=== PATIENT | male | born 1960 | race Caucasian/White ===

== ENCOUNTER → 2021-09-13 17:09 | Outpatient (CLI) | payer BC, SELFPAY | PROVIDERS: Visit Provider Physician Assistant | DX: U07.1 COVID-19 (principal) | CPT/HCPCS: 87635; U0005; U0003 ==

== ENCOUNTER → 2023-09-10 | Outpatient (CLI) | payer BC, SELFPAY | END | disposition home or self-care (01) | PROVIDERS: Visit Provider Family Medicine | DX: G47.10 Hypersomnia, unspecified (principal) | CPT/HCPCS: 95810 ==

== ENCOUNTER → 2025-03-26 | Outpatient (CLI) | payer BC, SELFPAY ==
--- OUTSIDE RECORDS SUMMARY | 2025-03-26 21:23 | XMS RPT_ITS | CCD ---
Author Organization [facility] Care Team Providers Care Radiology Technician Name Role Phone Mena Hairston Attending Unavailable Mena Hairston MD Unavailable [phone] Abraham Guillaume, Respiratory Therapy Unavailable Moreno AGUSTIN, Dr. Dudley Ramirez Unavailable Edison TRACTOR DRILL OPERATOR, Maureen Unavailable [place] TRACTOR DRILL OPERATOR, Rianna C Unavailable Unavailable Gogoi (scribe), Hemanta Unavailable Unavaila ble Brendan AGUSTIN, Michael Galvan Unavailable Phoebe Griffin Unavailable Unavailable Jose TRACTOR DRILL OPERATOR, Clau Unavailable Unavailable Latanya BELTRAN, Mimi Galvan Unavailable Unavaila ble Jovany (Scribe), Ronak Unavailable Unavailab le Richert TRACTOR DRILL OPERATOR, Fatoumata L Unavailable Unavailab le Satya TRACTOR DRILL OPERATOR, Mi Hidalgo Unavailable Unavailab le Malini TRACTOR DRILL OPERATOR, Elizabeth Crawford Unavailable Unavailab le Vess TRACTOR DRILL OPERATOR, Neilee L Unavailable Unavailable Marimar TRACTOR DRILL OPERATOR, Latrice N Unavailable Unavaila ble Unavailable Unavailable Johnny SMART, Tiffany Lockett Unavailable [phone] Breanna Mcpherson MA Unavailable Unavailable COLETTE Attending Unavailable Morgan AGUSTIN, Dr. Gage ([place] [facility]) A Unavail able MENA HAIRSTON Admitting Unavailable MENA HAIRSTON Primary Care Unavailable MENA HAIRSTON Consulting Unavailable MENA HAIRSTON Attending Unavailable PROVIDER, UNKNOWN Consulting Unavailable PROVIDER, UNKNOWN Consulting Unavailable PROVIDER, UNKNOWN Consulting Unavailable CECELIA SONG MD Admitting Unavailable CECELIA SONG MD Primary Care Unavailable CECELIA SONG MD Attending Unavailable MENA HAIRSTON Consulting Unavailable PROVIDER, UNKNOWN Consulting Unavailable PROVIDER, UNKNOWN Consulting Unavailable PROVIDER, UNKNOWN Consulting Unavailable CECELIA SONG MD Primary Care Unavailable CECELIA SONG MD Attending Unavailable MENA HAIRSTON Unavailable CECELIA SONG MD Admitting Unavailable PROVIDER, UNKNOWN Consulting Unavailable PROVIDER, UNKNOWN Consulting Unavailable PROVIDER, UNKNOWN Consulting Unavailable Medications Current Medications Medication Drug Class(es) Dates Sig (Normalized) Sig (Original) amoxicillin 500 mg oral capsule (20 sources) Penicillin-class Antibacterial Start: 09-19-2021 take 1000 mg by mouth every eight hours Amoxicillin Active 1000 MG PO Q8H September 19, 2021 12:00am Start: 11-08-2011 End: 11-18-2011 take 1 capsule by mouth three times daily AMOXICILLIN, 500MG (Oral Capsule) ; 1 (one) Capsule three times daily for 10 days Quantity: 30 {Capsule} Refills: 0 Ordered: 08-Nov-2011 STARLA Miles Start: 08-Nov-2011 End: 18-Nov-2011 Status: Inactive clonazePAM 1 mg oral tablet (20 sources) Benzodiazepine Start: 12-31-2024 clonazePAM 1 m g tablet ; 1 (one) Tablet qhs, prn insomnia for 0 days Quantity: 30 {Tablet} Refills: 3 Ordered: 31-Dec-2024 MD Mena Hairston Start: 31-Dec-2024 Comments: OARRS 12/31/24 Start: 09-03-2024 clonazePAM 1 m g tablet ; 1 (one) Tablet qhs, prn insomnia for 0 days Quantity: 30 {Tablet} Refills: 3 Ordered: 03-Sep-2024 MD Mena Hairston Start: 03-Sep-2024 Comments: OARRS 09/03/24 Start: 05-01-2024 clonazePAM 1 m g tablet ; 1 (one) Tablet qhs, prn insomnia for 0 days Quantity: 30 {Tablet} Refills: 3 Ordered: 01-May-2024 Start: 01-May-2024 Comments: OARRS 05/01/24 Start: 08-22-2023 clonazePAM 1 m g tablet ; 1 (one) Tablet qhs, prn insomnia for 0 days Quantity: 30 {Tablet} Refills: 3 Ordered: 31-Dec-2023 MD Mena Hairston Start: 31-Dec-2023 Comments: OARRS 12/31/23 Comment on above: OARRS 08/22/2023 OARRS 12/31/23 OARRS 05/01/24 OARRS 09/03/24 OARRS 12/31/24 escitalopram 10 mg oral tablet (20 sources) Serotonin Reuptake Inhibitor Start: 01-14-2025 escitalopram 10 mg tablet ; 1 (one) Tablet daily for 0 days Quantity: 90 {Tablet} Refills: 3 Ordered: 14-Jan-2025 MD Mena Hairston Start: 14-Jan-2025 Start: 01-13-2025 escitalopram 1 0 mg tablet ; 1 (one) Tablet daily for 0 days Quantity: 90 {Tablet} Refills: 0 Ordered: 13-Jan-2025 MD Mena Hairston Start: 13-Jan-2025 Start: 10-22-2024 escitalopram 1 0 mg tablet ; 1 (one) Tablet daily for 0 days Quantity: 90 {Tablet} Refills: 0 Ordered: 22-Oct-2024 MD Mena Hairston Start: 22-Oct-2024 Start: 07-25-2024 escitalopram 1 0 mg tablet ; 1 (one) Tablet daily for 0 days Quantity: 90 {Tablet} Refills: 0 Ordered: 25-Jul-2024 MD Mnea Hairston Start: 25-Jul-2024 Start: 02-05-2024 escitalopram 1 0 mg tablet ; 1 (one) Tablet daily for 0 days Quantity: 90 {Tablet} Refills: 1 Ordered: 05-Feb-2024 MD Mena Hairston Start: 05-Feb-2024 Start: 08-22-2023 escitalopram 1 0 mg tablet ; 1 (one) Tablet daily for 0 days Quantity: 90 {Tablet} Refills: 1 Ordered: 22-Aug-2023 STARLA Hogan Start: 22-Aug-2023 Completed/Discontinued Medications Medication Drug Class(es) Dates Sig (Normalized) Sig (Original) acetaminophen 325 mg / oxyCODONE hydrochloride 5 mg oral tablet (20 sources) Opioid Agonist take 1 tablet by mouth every four hours as needed PERCOCET, 5-325MG (Oral Tablet) ; 1-2 every four hours, as needed (5-325 MG) Status: Inactive Comments: Medication taken as needed. Comment on above: Medication taken as needed. citalopram 20 mg oral tablet (20 sources) Serotonin Reuptake Inhibitor Start: 07-08-2018 End: 07-08-2018 take 1 tablet by mouth once daily CeleXA 20 MG Oral Tablet ; 1 Tablet daily for 0 days Quantity: 90 {Tablet} Refills: 3 Ordered: 08-Jul-2018 MD Michael Cardona Start: 08-Jul-2018 End: 08-Jul-2018 Status: Discontinued Famotidine (20 sources) Histamine-2 Receptor Antagonist Acid Service Supervisor ; daily Status: Inactive MULTIVITAMINS (Oral Tablet) (20 sources) Start: 09-28-2010 End: 06-04-2023 take 1 tablet by mouth once daily MULTIVITAMINS (Oral Tablet) ; 1 Tablet daily for 0 days Quantity: 1 {Tablet} Refills: 0 Ordered: 04-Jun-2023 STARLA Hogan Start: 28-Sep-2010 End: 04-Jun-2023 Status: Discontinued Comments: Discontinued by Medication vendor. Comment on above: Discontinued by [facility] vendor. omeprazole 20 mg delayed release oral tablet (20 sources) Proton Pump Inhibitor take 1 tablet by mouth once daily OMEPRAZOLE, 20MG (Oral Tablet Delayed Release) ; 1 daily (20 MG) Status: Inactive ondansetron 8 mg oral tablet (20 sources) Serotonin-3 Receptor Antagonist take 1 tablet by mouth every eight hours ZOFRAN, 8MG (Oral Tablet) ; 1 every 8 hrs (8 MG) Status: Inactive raNITIdine 150 mg oral tablet (20 sources) Histamine-2 Receptor Antagonist Start: 11-01-2012 End: 10-31-2013 take 1 tablet by mouth twice daily RANITIDINE HCL, 150MG (Oral Tablet) ; 1 Tablet two times daily for 0 days Quantity: 60 {Tablet} Refills: 3 Ordered: 31-Oct-2013 STARLA Hernadez Start: 01-Nov-2012 End: 31-Oct-2013 Status: Inactive tamsulosin hydrochloride 0.4 mg oral capsule (20 sources) alpha-Adrenergic Srinath take 1 capsule by mouth once daily FLOMAX, 0.4MG (Oral Capsule) ; 1 daily (0.4 MG) Status: Inactive varenicline 0.5 mg oral tablet (20 sources) Partial Cholinergic Nicotinic Agonist Start: 02-08-2022 End: 08-07-2022 take 1 tablet by mouth twice daily APO-Varenicline 0.5 MG Oral Tablet ; 1 Tablet two times daily for 0 days Quantity: 30 {Tablet} Refills: 0 Ordered: 07-Aug-2022 Edison, STARLA Maureen Start: 08-Feb-2022 End: 07-Aug-2022 Status: Inactive Start: 02-08-2022 End: 08-07-2022 take 1 tablet by mouth twice daily APO-Varenicline 1 MG Oral Tablet ; 1 (one) Tablet two times daily for 0 days Quantity: 60 {Tablet} Refills: 2 Ordered: 07-Aug-2022 Edison STARLA Maureen Start: 08-Feb-2022 End: 07-Aug-2022 Status: Inactive Start: 11-09-2014 End: 11-16-2014 take 1 tablet by mouth once daily, then take 1 tablet by mouth twice daily CHANTIX STARTING MONTH NELSON, 0.5 MG X 11 &1 MG X 42 (Oral Tablet) ; 1 (one) Tablet(s) as directed on pack for 7 days Quantity: 11 {Tablet} Refills: 0 Ordered: 09-Nov-2014 MD Michael Cardona Start: 09-Nov-2014 End: 16-Nov-2014 Status: Inactive Comments: Take 0.5mg qd for 3 days, 0.5mg bid for 4 days. Start: 10-30-2011 End: 11-06-2011 take 1 tablet by mouth once daily, then take 1 tablet by mouth twice daily CHANTIX STARTING MONTH NELSON, 0.5 MG X 11 &1 MG X 42 (Oral Tablet) ; 1 (one) Tablet(s) as directed for 7 days Quantity: 1 {month_pack} Refills: 0 Ordered: 30-Oct-2011 STARLA Miles Start: 30-Oct-2011 End: 06-Nov-2011 Status: Inactive Comments: Take 0.5mg qd for 3 days, 0.5mg bid for 4 days. Comment on above: Take 0.5mg qd for 3 days, 0.5mg bid for 4 days. Problems Active Problems Problem Classification Problem Date Documented Date Episodic/Chronic Anxiety disorders (20 sources) Chronic anxiety; Translations: [Anxiety disorder, unspecified] 08-22-2023 Chronic Comment on above: escitalopram and otto nazepam Coagulation and hemorrhagic disorders (20 sources) Acquired thrombocytopenia; Translations: [Thrombocytopenia, unspecified] 12-31-2023 Chronic Deficiency and other anemia (20 sources) Anemia; Translations: [Anemia, unspecified] 12-31-2023 Episodic Esophageal disorders (20 sources) Gastroesophageal reflux disease; Translations: [Gastro-esophageal reflux disease without esophagitis] 08-22-2023 Chronic Esophageal disorders (20 sources) Esophageal disorders 08-09-2022 Essential hypertension (20 sources) Benign essential hypertension 04-25-2013 Chronic Fever of unknown origin (20 sources) Fever; Translations: [Fever, unspecified] 04-07-2024 Episodic Immunizations and screening for infectious disease (20 sources) Needs influenza immunization; Translations: [Encounter for immunization] 08-22-2023 Episodic Mood disorders (20 sources) Recurrent major depression in partial remission; Translations: [Major depressive disorder, recurrent, in partial remission] 08-22-2023 Chronic Other aftercare (20 sources) Drug indicated; Translations: [Other senior living (current) drug therapy] 02-23-2021 Episodic Other aftercare (20 sources) Patient encounter status; Translations: [Encounter for therapeutic drug level monitoring] 08-17-2020 Episodic Other nervous system disorders (20 sources) Lesion of ulnar nerve, left upper limb; Translations: [Lesion of ulnar nerve] 10-31-2013 Chronic Other non-traumatic joint disorders (7 sources) Pain in right knee; Translations: [Pain in joint, lower leg] 03-23-2025 Episodic Other nutritional; endocrine; and metabolic disorders (20 sources) Body mass index 30+ - obesity; Translations: [Body mass index (BMI) 30.0-30.9, adult] 08-22-2023 Chronic Other nutritional; endocrine; and metabolic disorders (20 sources) Overweight; Translations: [Overweight] 08-22-2023 Episodic Other nutritional; endocrine; and metabolic disorders (20 sources) Overweight in adulthood with body mass index of 25 or more but less than 30; Translations: [Body mass index (BMI) 28.0-28.9, adult] 01-04-2018 Episodic Other screening for suspected conditions (not mental disorders or infectious disease) (20 sources) Screening status; Translations: [Encounter for screening for diabetes mellitus] 08-21-2023 Episodic Other upper respiratory infections (20 sources) Sinusitis; Translations: [Chronic sinusitis, unspecified] 11-08-2011 Chronic Other upper respiratory infections (1 source) Acute upper respiratory infection; Translations: [Acute upper respiratory infection, unspecified] 09-13-2021 Episodic Otitis media and related conditions (1 source) Otitis media; Translations: [Otitis media, unspecified, bilateral] 09-19-2021 Episodic Residual codes; unclassified (1 source) Hypersomnia, unspecified; Translations: [Hypersomnia, unspecified] Onset: 09-12-2023 Chronic Residual codes; unclassified (20 sources) Disorders of excessive somnolence; Translations: [Hypersomnia, unspecified] 08-22-2023 Chronic Residual codes; unclassified (20 sources) Obstructive sleep apnea syndrome; Translations: [Obstructive sleep apnea (adult) (pediatric)] 09-24-2023 Chronic Comment on above: [facility] sleep study 08/16 023, f/u Dr Song has cpap but trouble with mask Residual codes; unclassified (20 sources) Immunization not carried out because of patient refusal; Translations: [Vaccination not carried out because of patient refusal] 08-22-2023 Episodic Residual codes; unclassified (20 sources) Insomnia; Translations: [Insomnia, unspecified] 08-22-2023 Episodic Residual codes; unclassified (20 sources) Tobacco user; Translations: [Tobacco use] 10-12-2015 Episodic Comment on above: 1 ppd Screening and history of mental health and substance abuse codes (20 sources) Ex-smoker; Translations: [Personal history of nicotine dependence] 12-31-2023 Episodic Comment on above: stopped smoking 2023 Thyroid disorders (20 sources) Hypothyroidism; Translations: [Hypothyroidism, unspecified] 12-31-2023 Chronic Unclassified (20 sources) Well adult male - The patient feels well with no complaints, has good energy level and is sleeping well. The patient has a balanced diet. The patient exercises none (pt says he is active). The patient sleeps 6 hours per night. Note for Well adult male: -Sleeps ok at night with clonazepam but reports he now falls asleep during the day. 08-22-2023 Unclassified (20 sources) [ADDITIONAL REASON] Follow Up for Multiple Chronic Conditions - The patient is here for follow-up of anxiety. The patient always takes the prescribed medications. No side effects noted (needs refill). The patient has an active lifestyle but no regular exercise program. 08-22-2023 Unclassified (20 sources) Well adult male - The patient feels well with no complaints, has good energy level and is sleeping well. The patient has a balanced diet. The patient exercises none (pt says he is active). The patient sleeps 6 hours per night. 08-09-2022 Unclassified (20 sources) [facility] Routine follow-up - The patient is here for follow-up of depression, GERD, anxiety and overweight. The patient always takes the prescribed medications. No side effects noted. The patient has an active lifestyle but no regular program. Note for Routine chronic follow-up: -Duran from [facility]. Needs refills. He had some CHantix at home and took it and says he went from smoking and inhaling 1.5 ppd to 1 pack per day and not inhaling. 02-08-2022 Unclassified (20 sources) [facility] Routine follow-up - The patient is here for follow-up of depression, GERD, anxiety and overweight. The patient always takes the prescribed medications. No side effects noted. The patient has an active lifestyle but no regular program. Note for Routine chronic follow-up: -Tramaurofer from [facility]. Needs refills. 08-15-2021 Unclassified (20 sources) Well adult male - The patient feels well with no complaints, has decreased energy level (works been hectic he needs more energy) and is sleeping well (most of the time). The patient has a balanced diet. The patient exercises none (pt says he is active). The patient sleeps 6 hours per night. Note for Well adult male: PHAN 08/2020labs printed 02-23-2021 Unclassified (20 sources) [facility] Routine follow-up - The patient is here for follow-up of depression, GERD, anxiety and overweight. The patient always takes the prescribed medications. No side effects noted. The patient has an active lifestyle but no regular program (pt says medium activity). The patient's dietary compliance is fairly good usually adhering to recommendations (eats healthy but does eat what he wants at time). The patient states that there is no recent angina or dyspnea, weight has decreased (down 1 lb), mood is unchanged and headaches are rarely noted (pt says typically not- but this month has been worse- says his allergies have been worse too). Note for Routine chronic follow-up: [facility] 02/17/20last labs 02/10/20 lipid, cmp , psa 08-17-2020 Unclassified (20 sources) Well adult male - The patient feels well with minor complaints (was depressed last week but is better this week), has decreased energy level and is sleeping poorly. The patient has a balanced diet. The patient does not exercise. The patient sleeps 6 hours per night. Note for Well adult male: [facility] 08/19/19labs printed 02-19-2020 Unclassified (20 sources) [facility] Routine follow-up - The patient is here for follow-up of depression, GERD, anxiety and overweight. The patient always takes the prescribed medications. No side effects noted. The patient has an active lifestyle but no regular program. The patient's dietary compliance is fair often eating foods not normally recommended. The patient states that there is no recent angina or dyspnea and depression has worsened (depression and anxiety have been lowsy per pt). Note for Routine chronic follow-up: [facility] 01/06/19last labs 01/04/18 cmp, lipwants prescription for shingles shot 08-21-2019 Unclassified (20 sources) Follow Up for Multiple Chronic Conditions - The patient is here for follow-up of anxiety. The patient always takes the prescribed medications. No side effects noted (needs refill). The patient has an active lifestyle but no regular exercise program. The patient's out of office blood pressure checks occur rarely and dietary compliance is fairly good usually adhering to recommendations. The patient states that there is no recent angina or dyspnea, weight has increased (up 1 pound), in general mood has improved and headaches are rarely noted. Note for Multiple chronic conditions follow-up: Last routine office visit 06/2018. Last lipid/cmp 12/2017. 01-06-2019 Unclassified (20 sources) Follow Up for Multiple Chronic Conditions - The patient is here for follow-up of anxiety, depression and GERD. The patient always takes the prescribed medications. No side effects noted (Is on Celexa 20mg daily and Clonazepam 0.5mg as needed. Is doing well on medication. Needs refill.). The patient has an active lifestyle but no regular exercise program. The patient's out of office blood pressure checks occur rarely and dietary compliance is fairly good usually adhering to recommendations. The patient states that there is no recent angina or dyspnea, weight is unchanged, in general mood has improved and headaches are rarely noted. Note for Multiple chronic conditions follow-up: Complains of daytime sleepiness.Last routine office visit, lipid/cmp 12/2017. 07-08-2018 Unclassified (20 sources) [facility] Routine Follow up - The patient is here for follow-up of depression, GERD and anxiety. The patient always takes the prescribed medications. No side effects noted. (needs a refill on clonazepam today) The patient has an active lifestyle but no regular program. The patient's out of office blood pressure checks occur rarely and dietary compliance is fairly good usually adhering to recommendations. The patient states that breathing effort is stable, there is no recent angina or dyspnea, there are no vision changes or weakness, weight has decreased (1#), depression has worsened (mother recently ) and they do not have headaches. Note for Routine chronic follow-up: PHAN 04/11/2016. Last CMP and Lipid 04/11/2016. Last PSA 2012. 01-04-2018 Unclassified (20 sources) Well Adult, male - The patient feels well with minor complaints, has decreased energy level and is sleeping poorly. The patient has a balanced diet and takes supplemental vitamins. The patient exercises weekly. The patient sleeps 6 hours per night. Note for Well Adult, male: Patient was referred to a gastro specialist for a screening colonoscopy, but patient did not end up seeing the doctor. No colonoscopy done at this point. Patient is fasting today. 04-14-2016 Unclassified (20 sources) [facility] Routine Follow up - The patient is here for follow-up of depression (Last rtn visit 11/09/14. TSH 10/31/13. CMP and PSA 04/25/13. No recent lipid.), anxiety and Tobacco use. The patient always takes the prescribed medications. No side effects noted. The patient has an active lifestyle but no regular program. The patient's out of office blood pressure checks occur rarely and dietary compliance is fairly good usually adhering to recommendations. The patient states that breathing effort is stable, there is no recent angina or dyspnea, there are no vision changes or weakness, weight has decreased (3#), mood is unchanged, they are still having trouble sleeping and they do not have headaches. Note for Routine chronic follow-up: Patient is willing to get screening colonoscopy. 10-12-2015 Unclassified (20 sources) [facility] Routine Follow up - The patient is here for follow-up of depression (and Anxiety Last rtn visit 05/04/14. TSH 10/31/13. CMP and PSA 04/25/13. No Lipid. ). The patient always takes the prescribed medications. No side effects noted. The patient has an active lifestyle but no regular program. The patient's out of office blood pressure checks occur rarely and dietary compliance is fairly good usually adhering to recommendations. The patient states that breathing effort is stable, there is no recent angina or dyspnea, there are no vision changes or weakness, weight has increased (2#), mood is unchanged, they are still having trouble sleeping and they do not have headaches. 11-09-2014 Unclassified (20 sources) [facility] Routine Follow up - The patient is here for follow-up of depression (Last rtn visit 10/31/13. TSH 10/31/13. CMP and PSA 04/2013. No Lipid.). The patient always takes the prescribed medications. No side effects noted. The patient has an active lifestyle but no regular program. The patient's out of office blood pressure checks occur rarely and dietary compliance is fair often eating foods not normally recommended. The patient states that breathing effort is stable, there is no recent angina or dyspnea, there are no vision changes or weakness, weight has increased (3#), depression has worsened, they are still having trouble sleeping and they do not have headaches. 05-05-2014 Unclassified (20 sources) Follow up for multiple chronic conditions - The patient is here for follow-up of depression and GERD. The patient always takes the prescribed medications. No side effects noted. The patient engages in regular exercise program 3-5 times per week (walks on treadmill). The patient states that mood is unchanged. 10-31-2013 Unclassified (20 sources) [facility] Routine Follow up - The patient is here for follow-up of hypertension (Last rtn visit 11/01/12. CMP, PSA 04/25/12. No Lipid.), depression and GERD. The patient always takes the prescribed medications. No side effects noted. The patient has an active lifestyle but no regular program. The patient's out of office blood pressure checks occur rarely and dietary compliance is fair often eating foods not normally recommended. The patient states that breathing effort is stable, there is no recent angina or dyspnea, there are no vision changes or weakness, weight has decreased (1#), mood is unchanged, they are still having trouble sleeping and they do not have headaches. 05-02-2013 Unclassified (20 sources) [facility] Routine Follow up - The patient is here for follow-up of depression (Last rtn visit 05/03/12. CMP 05/03/12. No Lipid.). The patient always takes the prescribed medications. No side effects noted. The patient has an active lifestyle but no regular program. The patient's out of office blood pressure checks occur rarely and dietary compliance is fairly good usually adhering to recommendations. The patient states that breathing effort is stable, there is no recent angina or dyspnea, there are no vision changes or weakness, weight has increased (1#), mood is unchanged, they are still having trouble sleeping (taking Tylenol PM to help) and they do not have headaches. The patient does not check home blood sugars. 11-03-2012 Unclassified (20 sources) [facility] Routine Follow up - The patient is here for follow-up of depression (Last visit 10/30/11 No recent labs). The patient always takes the prescribed medications. No side effects noted. The patient has an active lifestyle but no regular program. The patient's out of office blood pressure checks occur rarely and dietary compliance is fairly good usually adhering to recommendations. The patient states that breathing effort is stable, there is no recent angina or dyspnea, there are no vision changes or weakness, weight is unchanged, depression has worsened (high stress over last month. company has been bought out.) and they do not have headaches. The patient does not check home blood sugars. 05-03-2012 Unclassified (20 sources) [facility] Routine Follow up - The patient is here for follow-up of GERD and other condition(s) (anxiety ). The patient always takes the prescribed medications. No side effects noted. The patient has an active lifestyle but no regular program. The patient states that in general mood has improved. 04-14-2011 Unclassified (9 sources) Follow Up for Multiple Chronic Conditions - The patient is here for follow-up of anxiety. The patient always takes the prescribed medications. No side effects noted (needs refill). The patient has an active lifestyle but no regular exercise program. 08-22-2023 Unclassified (8 sources) [ADDITIONAL REASON] Well adult male - The patient feels well with no complaints, has good energy level and is sleeping well. The patient has a balanced diet. The patient exercises none (pt says he is active). The patient sleeps 6 hours per night. Note for Well adult male: -Sleeps ok at night with clonazepam but reports he now falls asleep during the day. 08-22-2023 Unclassified (20 sources) Follow up laboratory test results - Note for Laboratory test results follow-up: -Saw internal medicine for AutoPAP consult and had some labs. He was told he is anemic and needs to see hematology. He is getting his auto-pap machine later today. 12-31-2023 Unclassified (9 sources) [ADDITIONAL REASON] Well adult male - The patient feels well with no complaints, has good energy level and is sleeping well. The patient has a balanced diet. The patient exercises none (pt says he is active). The patient sleeps 6 hours per night. 08-09-2022 Viral infection (1 source) Disease caused by 2019-nCoV; Translations: [COVID-19] 09-13-2021 Episodic Past or Other Problems Problem Classification Problem Date Documented Date Episodic/Chronic Deficiency and other anemia (1 source) Anemia, unspecified; Translations: [Anemia, unspecified] Onset: 12-10-2024 Episodic Malaise and fatigue (1 source) Other fatigue; Translations: [Other fatigue] Onset: 12-10-2024 Episodic Unclassified (20 sources) Cold Symptoms - Symptoms include nasal congestion, runny nose, non-purulent sputum, hoarseness and productive cough (Worse at night.Patient has to sleep sitting up.). The onset was 11 day(s) ago. The symptoms occur intermittently. The patient describes this as moderate in severity and unchanged. Current treatment includes non-prescription cold medication and cough suppressants. Risk factors include smoking. The patient has been exposed to an individual with an upper respiratory infection. Medical history includes seasonal allergies and recurrent ear infections (as a child not as an adult), but patient denies history of recurrent sinusitis, recurrent strep pharyngitis, asthma or tonsillectomy. 11-08-2011 Unclassified (20 sources) [ADDITIONAL REASON] little finger on right hand - Patient has trouble bending his little finger. He hyperextended it about 3 months ago. Since than he has trouble bending it and it is still sore. 11-08-2011 Unclassified (20 sources) Depression, follow up - Since diagnosis the disease has been unchanged. No changes in management were made at the last visit. The last clinic visit was 6 month(s) ago. Symptoms include fatigue. Note for Depression, follow up: Patient thinks he feels about the same thinks he has learned to deal with it better. 10-30-2011 Unclassified (20 sources) Anxiety - The onset of the anxiety has been gradual and has been occurring in a persistent pattern for 2 years. The course has been decreasing. The anxiety is characterized as apprehension. There are no specific phobias. Precipitating factors include specific circumstances (very stressful job). The symptoms have been associated with agitation, dizziness (better on medication) and dry mouth. 09-28-2010 Unclassified (20 sources) Unspecified Diagnosis 08-30-2010 Unclassified (1 source) Follow up laboratory test results - Note for Laboratory test results follow-up: -Saw internal medicine for AutoPAP consult and had some labs. He was told he is anemic and needs to see rheumatology. 12-31-2023 Unclassified (4 sources) little finger on right hand - Patient has trouble bending his little finger. He hyperextended it about 3 months ago. Since than he has trouble bending it and it is still sore. 11-08-2011 Unclassified (4 sources) [ADDITIONAL REASON] Cold Symptoms - Symptoms include nasal congestion, runny nose, non-purulent sputum, hoarseness and productive cough (Worse at night.Patient has to sleep sitting up.). The onset was 11 day(s) ago. The symptoms occur intermittently. The patient describes this as moderate in severity and unchanged. Current treatment includes non-prescription cold medication and cough suppressants. Risk factors include smoking. The patient has been exposed to an individual with an upper respiratory infection. Medical history includes seasonal allergies and recurrent ear infections (as a child not as an adult), but patient denies history of recurrent sinusitis, recurrent strep pharyngitis, asthma or tonsillectomy. 11-08-2011 Unclassified (17 sources) Cold Symptoms - Symptoms include runny nose, ear pain (left ear), fever (101.5 this morning - patient did not have a working thermometer until this morning and suspects he may have had a fever other days), chills, general malaise and headache, but do not include sneezing, nasal congestion, sore throat, scratchy throat, dry cough or productive cough. The onset was gradual 5 day(s) ago. The symptoms occur frequently. The patient describes this as moderate in severity and improving. Current treatment includes NSAIDs and home remedies. The patient has not been exposed to an individual with a cough, an individual with an upper respiratory infection or an individual with similar symptoms. Patient denies history of seasonal allergies, recurrent sinusitis, recurrent strep pharyngitis, tonsillectomy or recurrent ear infections. 04-07-2024 Unclassified (7 sources) Follow Up for Multiple Chronic Conditions - The patient is here for follow-up of anxiety. The patient always takes the prescribed medications. No side effects noted. The patient has an active lifestyle but no regular exercise program. Note for Multiple chronic conditions follow-up: -Has cpap but does not use much. Has trouble with mask leaking. Has met with different RT at [facility] and hasn't resolved it. 11-19-2024 Unclassified (7 sources) [ADDITIONAL REASON] Well adult male - The patient feels well with no complaints, has good energy level and is sleeping well. The patient has a balanced diet and takes no supplemental vitamins & iron. The patient exercises none (pt says he is active). The patient sleeps 6 (poor) hours per night. 11-19-2024 Unclassified (3 sources) Knee pain - The onset of the knee pain has been gradual and has been occurring in a persistent pattern for 2 years. The course has been rapidly worsening. The knee pain is moderate in the right knee. The knee pain is aggravated by any movement. The knee pain is relieved by ice and NSAIDs. Note for Knee pain: -Was having trouble with pain and it caused him to fall out of his truck 3 days ago. 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 He rested all day yesterday and used ice. His back and foot do not hurt. 03-23-2025 Unclassified (1 source) Well adult male - The patient feels well with no complaints, has good energy level and is sleeping well. The patient has a balanced diet and takes no supplemental vitamins & iron. The patient exercises none (pt says he is active). The patient sleeps 6 (poor) hours per night. 11-19-2024 Unclassified (1 source) [ADDITIONAL REASON] Follow Up for Multiple Chronic Conditions - The patient is here for follow-up of anxiety. The patient always takes the prescribed medications. No side effects noted. The patient has an active lifestyle but no regular exercise program. Note for Multiple chronic conditions follow-up: -Has cpap but does not use much. Has trouble with mask leaking. Has met with different RT at [facility] and hasn't resolved it. 11-19-2024 Results Test Name Value Interpretation Reference Range Facility KNEE COMPLETE RT MIN 4 VIEWS on 03-23-2025 KNEE COMPLETE RT MIN 4 VIEWS [place] [address] Patient: ESTELA HOGAN Phone#: : 1960 Age: 65 Gender: M Pt. Type: Out Account: [id number] Location: Ordering: MENA HAIRSTON Exam Date: 03/23/2025/17:31 Family Phys: Charge Code: 336303 Physician: [place] Order #: [id number] Dose#: PROCEDURE: X-RAY KNEE RT COMPLETE 4 VIEWS COMPARISON: None. INDICATIONS: Acute pain of the right knee. FINDINGS: BONES: Normal. No significant arthropathy or acute abnormality. No fracture or dislocation. SOFT TISSUES: Suprapatellar soft tissue stranding EFFUSION: Small suprapatellar joint effusion OTHER: Negative. CONCLUSION: 1. Small suprapatellar joint effusion Dictated by: Samantha Maza MD on 03/23/2025 at 18:05 Approved by: Samantha Maza MD on 03/23/2025 at 18:07 Normal [facility] CBC (INCLUDES DIFF/PLT)on Basophils (Bld) [#/Vol] 0.029 10*3/uL Normal 0-200 [facility] Comment on above: Performed By: #### 7 600, 9002, 15968 #### [facility] [address], [address] [place] [address] Component Engineer: Eder Myers MD Basophils/100 WBC (Bld) 0.5 % Normal [facility] Comment on above: Performed By: #### 7 600, 6399, 95320 #### [facility] of [address], [address] [place] [address] Component Engineer: Eder Myers MD Eosinophils (Bld) [#/Vol] 0.12 10*3/uL Normal 15-500 [facility] Comment on above: Performed By: #### 7 600, 6399, 93086 #### [facility] of [place] [address] Component Engineer: Eder Myers MD Eosinophils/100 WBC (Bld) 2.1 % Normal [facility] Comment on above: Performed By: #### 7 600, 63, 35578 #### [facility] of [place] [address] Component Engineer: Eder Myers MD Erythrocyte distribution width (RBC) [Ratio] 11.9 % Normal 11.0-15.0 [facility] Comment on above: Performed By: #### 7 600, 6399, 20802 #### [facility] of [place] [address] Component Engineer: Eder Myers MD Hematocrit (Bld) [Volume fraction] 39.1 % Normal 38.5-50.0 [facility] Comment on above: Performed By: #### 7 600, 6399, 24783 #### [facility] of [place] [address] Component Engineer: Eder Myers MD Hemoglobin (Bld) [Mass/Vol] 13.2 g/dL Normal 13.2-17.1 [facility] Comment on above: Performed By: #### 7 600, 6399, 96283 #### [facility] of [place] [address] Component Engineer: Eder Myers MD Lymphocytes (Bld) [#/Vol] 1.015 10*3/uL Normal 850-3900 [facility] Comment on above: Performed By: #### 7 600, 6399, 13283 #### [facility] [place] [address] Component Engineer: Eder Myers MD Lymphocytes/100 WBC (Bld) 17.8 % Normal [facility] Comment on above: Performed By: #### 7 600, 63, 14472 #### [facility] [place] [address] Component Engineer: Eder Myers MD MCH (RBC) [Entitic mass] 35.0 pg High 27.0-33.0 [facility] Comment on above: Performed By: #### 7 600, 63, 38983 #### [facility] [place] [address] Component Engineer: Eder Myers MD MCHC (RBC) [Mass/Vol] 33.8 g/dL Normal 32.0-36.[address] [facility] Comment on above: Result Comment: For adults, a slight decrease in the calculated MCHC value (in the range of 30 to 32 g/dL) is most likely not clinically significant; however, it should be interpreted with caution in correlation with other red cell parameters and the patient's clinical condition. Performed By: #### 7 600, 63, 54447 #### [facility] [place] [address] Component Engineer: Eder Myers MD MCV (RBC) [Entitic vol] 103.7 fL High 80.0-100.0 [facility] Comment on above: Performed By: #### 7 600, 63, 41938 #### [facility] of [place] [address] Component Engineer: Eder Myers MD Monocytes (Bld) [#/Vol] 0.49 10*3/uL Normal 200-950 [facility] Comment on above: Performed By: #### 7 600, 63, 73567 #### [facility] [place] [address] Component Engineer: Eder Myers MD Monocytes/100 WBC (Bld) 8.6 % Normal [facility] Comment on above: Performed By: #### 7 600, 6399, 12937 #### [facility] of [place] [address] Component Engineer: Eder Myers MD Neutrophils (Bld) [#/Vol] 4.047 10*3/uL Normal 6051-1310 [facility] Comment on above: Performed By: #### 7 600, 6399, 61993 #### [facility] of [place] [address] Component Engineer: Eder Myers MD Neutrophils/100 WBC (Bld) 71 % Normal [facility] Comment on above: Performed By: #### 7 600, 6399, 99075 #### [facility] of [place] [address] Component Engineer: Eder Myers MD Platelet mean volume (Bld) [Entitic vol] 11.0 fL Normal 7.5-12.5 [facility] Comment on above: Performed By: #### 7 600, 6399, 07326 #### [facility] of [place] [address] Component Engineer: Eder Myers MD Platelets (Bld) [#/Vol] 91 10*3/uL Low 140-400 [facility] Comment on above: Performed By: #### 7 600, 6399, 33684 #### [facility] of [place] [address] Component Engineer: Eder Myers MD RBC (Bld) [#/Vol] 3.77 10*6/uL Low 4.20-5.80 [facility] Comment on above: Performed By: #### 7 600, 6399, 61701 #### [facility] of [place] [address] Component Engineer: Eder Myers MD WBC (Bld) [#/Vol] 5.7 10*3/uL Normal 3.8-10.8 [facility] Comment on above: Performed By: #### 7 600, 6399, 11248 #### [facility] of [place] [address] Component Engineer: Eder Myers MD [facility] 11-12-2024 Albumin [Mass/Vol] 4.4 g/dL Normal 3.6-5.1 [facility] Comment on above: Performed By: #### 7 600, 6399, 24715 #### [facility] of [place] [address] Component Engineer: Eder Myers MD Albumin/Globulin [Mass ratio] 1.8 {ratio} Normal 1.0-2.5 [facility] Comment on above: Performed By: #### 7 600, 6399, 16975 #### [facility] of [place] [address] Component Engineer: Eder Myers MD ALP [Catalytic activity/Vol] 76 U/L Normal 35-144 [facility] Comment on above: Performed By: #### 7 600, 6399, 74137 #### [facility] [place] [address] Component Engineer: Eder Myers MD ALT [Catalytic activity/Vol] 18 U/L Normal 9-46 [facility] Comment on above: Performed By: #### 7 600, 6399, 09770 #### [facility] of [place] [address] Component Engineer: Eder Myers MD AST [Catalytic activity/Vol] 18 U/L Normal 10-35 [facility] Comment on above: Performed By: #### 7 600, 6399, 93033 #### [facility] of [place] [address] Component Engineer: Eder Myers MD Bilirubin [Mass/Vol] 1.0 mg/dL Normal 0.2-1.2 [facility] Comment on above: Performed By: #### 7 600, 6399, 07289 #### [facility] of [place] [address] Component Engineer: Eder Myers MD BUN/CREATININE RATIO SEE NOTE: Normal 6-22 [facility] Comment on above: Result Comment: Not Reported: BUN and Creatinine are within reference range. Performed By: #### 7 600, 6399, 40899 #### [facility] of [place] [address] Component Engineer: Eder Myers MD Calcium [Mass/Vol] 8.8 mg/dL Normal 8.6-10.3 [facility] Comment on above: Performed By: #### 7 600, 6399, 55947 #### [facility] of [place] [address] Component Engineer: Eder Myers MD Chloride [Moles/Vol] 107 mmol/L Normal 98-110 [facility] Comment on above: Performed By: #### 7 600, 6399, 68674 #### [facility] of [place] [address] Component Engineer: Eder Myers MD CO2 [Moles/Vol] 27 mmol/L Normal 20-32 [facility] Comment on above: Performed By: #### 7 600, 6399, 91319 #### [facility] of [place] [address] Component Engineer: Eder Myers MD Creatinine [Mass/Vol] 0.96 mg/dL Normal 0.70-1.[address] [facility] Comment on above: Performed By: #### 7 600, 6399, 84180 #### [facility] of [place] [address] Component Engineer: Eder Myers MD GFR/1.73 sq M.predicted among non-blacks MDRD (S/P/Bld) [Vol rate/Area] 89 mL/min/{1.73_m2} Normal > OR = 60 [facility] Comment on above: Performed By: #### 7 600, 6399, 23215 #### [facility] of [place] [address] Component Engineer: Eder Myers MD Globulin (S) [Mass/Vol] 2.4 g/dL Normal 1.9-3.7 [facility] Comment on above: Performed By: #### 7 600, 6399, 78021 #### [facility] of [address], [address] [place] [address] Component Engineer: Eder Myers MD Glucose [Mass/Vol] 89 mg/dL Normal 65-99 [facility] Comment on above: Result Comment: Fasting reference interval Performed By: #### 7 600, 6399, 29788 #### [facility] of [place] [address] Component Engineer: Eder Myers MD Potassium [Moles/Vol] 4.1 mmol/L Normal 3.5-5.[address] [facility] [address] [facility] Comment on above: Performed By: #### 7 600, 6399, 47048 #### [facility] of [place] [address] Component Engineer: Eder Myers MD Protein [Mass/Vol] 6.8 g/dL Normal 6.1-8.1 [facility] Comment on above: Performed By: #### 7 600, 6399, 05503 #### [facility] of [place] [address] Component Engineer: Eder Myers MD Sodium [Moles/Vol] 140 mmol/L Normal 135-146 [facility] Comment on above: Performed By: #### 7 600, 6399, 83785 #### [facility] of [place] [address] Component Engineer: Eder Myers MD Urea nitrogen [Mass/Vol] 18 mg/dL Normal 7-25 [facility] Comment on above: Performed By: #### 7 600, 6399, 25381 #### [facility] of [address] [place] [address] Component Engineer: Eder Myers MD LIPID PANEL, [facility] 10-16 Cholesterol [Mass/Vol] 102 mg/dL Normal <200 [facility] Comment on above: Performed By: #### 7 600, 6399, 55831 #### [facility] [address], [address] [place] [address] Component Engineer: Eder Myers MD Cholesterol in HDL [Mass/Vol] 29 mg/dL Low > OR = 40 [facility] Comment on above: Performed By: #### 7 600, 6399, 82248 #### [facility] [place] [address] Component Engineer: Eder Myers MD Cholesterol in LDL [Mass/Vol] 59 mg/dL Normal [facility] Comment on above: Result Comment: Refe rence range: <100 Desirable range <100 mg/dL for primary prevention; <70 mg/dL for patients with CHD or diabetic patients with > or = 2 CHD risk factors. LDL-C is now calculated using the Dimitrios-Brad calculation, which is a validated novel method providing better accuracy than the Friedewald equation in the estimation of LDL-C. Dimitrios SS et al. JESSICA. 2013;310(19): 0503-0382 (http://education.WhoisEDI.[employer]/faq/SJZ997) Performed By: #### 7 600, 6399, 33472 #### [facility] [place] [address] Component Engineer: Eder Myers MD Cholesterol.total/Cho lesterol in HDL [Mass ratio] 3.5 {ratio} Normal <5.0 [facility] Comment on above: Performed By: #### 7 600, 6399, 23445 #### [facility] [place] [address] Component Engineer: Eder Myers MD NON HDL CHOLESTEROL 73 mg/dL (calc) Normal <130 [facility] Comment on above: Result Comment: For patients with diabetes plus 1 major ASCVD risk factor, treating to a non-HDL-C goal of <100 mg/dL (LDL-C of <70 mg/dL) is considered a therapeutic option. Performed By: #### 7 600, 6399, 84466 #### [facility] [address] [place] [address], [address] [place] [address] Component Engineer: Eder Myers MD Triglyceride [Mass/Vol] 67 mg/dL Normal <150 [facility] Comment on above: Performed By: #### 7 600, 6399, 68551 #### [facility] [address] [place] [address], [address] [place] [address] Component Engineer: Eder Myers MD Laboratory - Chemistry and C hemistry - [facility] 11-11-2024 Albumin [Mass/Vol] 4.4 g/dL Normal 3.6 - 5.1 g/dL [facility], [facility].; [place] [employer] [facility] Albumin/Globulin [Mass ratio] 1.8 {ratio} Normal 1.0 - 2.5 [facility], [facility].; [place] [employer] ALP [Catalytic activity/Vol] 76 U/L Normal 35 - 144 U/L [facility], [facility].; [place] [employer] ALT [Catalytic activity/Vol] 18 U/L Normal 9 - 46 U/L [facility], [facility].; [place] [employer] AST [Catalytic activity/Vol] 18 U/L Normal 10 - 35 U/L [facility], [facility].; [place] [employer] Bilirubin [Mass/Vol] 1.0 mg/dL Normal 0.2 - 1 .2 mg/dL [facility], [facility].; [employer] Calcium [Mass/Vol] 8.8 mg/dL Normal 8.6 - 10. 3 mg/dL [facility], [facility].; [employer] Chloride [Moles/Vol] 107 mmol/L Normal 98 - 11 0 mmol/L [place] [employer] [facility] [employer] Cholesterol [Mass/Vol] 102 mg/dL Normal [facility] [place] [employer] Cholesterol in HDL [Mass/Vol] 29 mg/dL Abnormal [place] [employer], [facility].; [facility] Cholesterol in LDL [Mass/Vol] 59 mg/dL Normal [facility], [facility].; [facility], [facility]. CO2 [Moles/Vol] 27 mmol/L Normal 20 - 32 mmol/L [facility], [facility].; [facility], [facility] Creatinine [Mass/Vol] 0.96 mg/dL Normal 0.70 - 1.35 mg/dL [facility], [facility].; [facility], [facility]. GFR/1.73 sq M.predicted among non-blacks MDRD (S/P/Bld) [Vol rate/Area] 89 mL/min/{1.73_m2} Normal [facility], [facility].; [facility], [facility]. Glucose [Mass/Vol] 89 mg/dL Normal 65 - 99 mg/dL [facility], [facility]. Potassium [Moles/Vol] 4.1 mmol/L Normal 3.5 - 5.3 mmol/L [facility], [facility].; [facility], [facility]. Protein [Mass/Vol] 6.8 g/dL Normal 6.1 - 8.1 g/dL [facility].; [facility], [facility]. Sodium [Moles/Vol] 140 mmol/L Normal 135 - 146 mmol/L [facility], [facility].; [facility], [facility]. Triglyceride [Mass/Vol] 67 mg/dL Normal [facility], [facility].; [facility], [facility] Urea nitrogen [Mass/Vol] 18 mg/dL Normal 7 - 25 mg/dL [facility], [facility].; [facility], [facility]. Laboratory - Hematology and Cell countson 11-11-2024 Basophils (Bld) [#/Vol] 0.029 10*3/uL Normal 0 - 200 {cells/uL} [facility], [facility].; [facility], [facility]. Basophils/100 WBC (Bld) 0.5 % Normal [facility], [facility].; [facility], [facility]. Eosinophils (Bld) [#/Vol] 0.12 10*3/uL Normal 15 - 500 {cells/uL} [facility], [facility].; [facility], [facility]. Eosinophils/100 WBC (Bld) 2.1 % Normal [facility], [facility] Erythrocyte distribution width (RBC) [Ratio] 11.9 % Normal 11.0 - 15.0 % [facility].; [facility], [facility] Hematocrit (Bld) [Volume fraction] 39.1 % Normal 38.5 - 50.0 % [facility], [facility].; [facility], [facility] Hemoglobin (Bld) [Mass/Vol] 13.2 g/dL Normal 13.2 - 17.1 g/dL [facility].; [facility], [facility] Lymphocytes (Bld) [#/Vol] 1.015 10*3/uL Normal 850 - 3900 {cells/uL} [facility].; [facility], [facility]. Lymphocytes/100 WBC (Bld) 17.8 % Normal [facility], [facility]. MCH (RBC) [Entitic mass] 35.0 pg Abnormal 27.0 - 33.0 pg [facility] Petersburg[facility].; [facility], [facility]. MCHC (RBC) [Mass/Vol] 33.8 g/dL Normal 32.0 - 36.0 g/dL [facility] Petersburg[facility].; [facility], [facility]. MCV (RBC) [Entitic vol] 103.7 fL Abnormal 80.0 - 100.0 fL [facility].; [facility], [facility]. Monocytes (Bld) [#/Vol] 0.49 10*3/uL Normal 200 - 950 {cells/uL} [facility], [facility].; [facility], [facility]. Monocytes/100 WBC (Bld) 8.6 % Normal [facility].; [facility], [facility]. Neutrophils (Bld) [#/Vol] 4.047 10*3/uL Normal 1500 - 7800 {cells/uL} [facility].; [facility], [facility]. Neutrophils/100 WBC (Bld) 71 % Normal [facility], [facility].; [facility], [facility]. Platelet mean volume (Bld) [Entitic vol] 11.0 fL Normal 7.5 - 12.5 fL [facility].; [facility], [employer] Platelets (Bld) [#/Vol] 91 10*3/uL Abnormal 140 - 400 [facility].; [facility]. RBC (Bld) [#/Vol] 3.77 10*6/uL Abnormal 4.20 - 5.8 0 {Million/uL} [facility].; [facility] Petersburg[facility]. WBC (Bld) [#/Vol] 5.7 10*3/uL Normal 3.8 - 10.8 [facility].; [facility] No Panel Informationon 11-11 BUN/CREATININE RATIO SEE NOTE: Normal 6 - 22 [facility].; [place] [employer] [facility]. CHOL/HDLC RATIO 3.5 Normal [facility]; [facility] GLOBULIN 2.4 Normal 1.9 - 3.7 [facility]; [facility] Petersburg[facility] NON HDL CHOLESTEROL 73 Normal [facility]; [place] [employer] [facility] Laboratory - Microbiology an d Antimicrobial susceptibilityon 04-07-2024 FLUAV Ag IA Ql (Throat) Negative Normal [facility]; [place] [employer] [facility] SARS-CoV-2 (COVID-19) RNA ELOY+probe Ql (Unsp spec) Negative Normal [facility]; [place] [employer] [facility]. CBC (INCLUDES DIFF/PLT)on Basophils (Bld) [#/Vol] 0.031 10*3/uL Normal 0-200 [facility] Comment on above: Performed By: #### 8 37, [id number], 458, 6530 #### [facility] [address], [address] [place] [address] Component Engineer: Eder Myers MD Basophils/100 WBC (Bld) 0.5 % Normal [facility] Comment on above: Performed By: #### 8 99, 18363, 863, 9792 #### [facility] [address] [place], [place] [address] , [address] [place] [id number] Component Engineer: Eder Myers MD Eosinophils (Bld) [#/Vol] 0.118 10*3/uL Normal 15-500 [facility] Comment on above: Performed By: #### 8 99, 77027, 866, 6399 #### [facility] [place] [address] Component Engineer: Eder Myers MD Eosinophils/100 WBC (Bld) 1.9 % Normal [facility] Comment on above: Performed By: #### 8 99, 70860, 86, 6399 #### [facility] [place] [address] Component Engineer: Eder Myers MD Erythrocyte distribution width (RBC) [Ratio] 11.8 % Normal 11.0-15.0 [facility] Comment on above: Performed By: #### 8 99, 02149, 86, 6399 #### [facility] [place] [address] Component Engineer: Eder Myers MD Hematocrit (Bld) [Volume fraction] 43.7 % Normal 38.5-50.0 [facility] Comment on above: Performed By: #### 8 , 61454, 866, 6399 #### [facility] [place] [address] Component Engineer: Eder Myers MD Hemoglobin (Bld) [Mass/Vol] 14.4 g/dL Normal 13.2-17.1 [facility] Comment on above: Performed By: #### 8 99, 44346, 86, 6399 #### [facility] [place] [address] Component Engineer: Eder Myers MD Lymphocytes (Bld) [#/Vol] 0.837 10*3/uL Low 850-3900 [facility] Comment on above: Performed By: #### 8 99, 37129, 866, 6399 #### [facility] [place] [address] Component Engineer: Eder Myers MD Lymphocytes/100 WBC (Bld) 13.5 % Normal [facility] Comment on above: Performed By: #### 8 , 56511, 86, 6399 #### [facility] [place] [address] Component Engineer: Eder Myers MD MCH (RBC) [Entitic mass] 35.7 pg High 27.0-33.0 [facility] Comment on above: Performed By: #### 8 , , , 6399 #### [facility] [place] [address] Component Engineer: Eder Myers MD MCHC (RBC) [Mass/Vol] 33.0 g/dL Normal 32.0-36.[address] [facility] Comment on above: Performed By: #### 8 , , 86, 6399 #### [facility] [place] [address] Component Engineer: Eder Myers MD MCV (RBC) [Entitic vol] 108.4 fL High 80.0-100.0 [facility] Comment on above: Performed By: #### 8 , , 86, 6399 #### [facility] [place] [address] Component Engineer: Eder Myers MD Monocytes (Bld) [#/Vol] 0.508 10*3/uL Normal 200-950 [facility] Comment on above: Performed By: #### 8 , , 86, 6399 #### [facility] [place] [address] Component Engineer: Eder Myers MD Monocytes/100 WBC (Bld) 8.2 % Normal [facility] Comment on above: Performed By: #### 8 , , 86, 6399 #### [facility] [place] [address] Component Engineer: Eder Myers MD Neutrophils (Bld) [#/Vol] 4.706 10*3/uL Normal 2010-9281 [facility] Comment on above: Performed By: #### 8 99, 18109, 86, 6399 #### [facility] [place] [address] Component Engineer: Eder Myers MD Neutrophils/100 WBC (Bld) 75.9 % Normal [facility] Comment on above: Performed By: #### 8 99, 76361, 866, 6399 #### [facility] [place] [address] Component Engineer: Eder Myers MD Platelet mean volume (Bld) [Entitic vol] 10.9 fL Normal 7.5-12.5 [facility] Comment on above: Performed By: #### 8 99, 09362, 86, 6399 #### [facility] [place] [address] Component Engineer: Eder Myers MD Platelets (Bld) [#/Vol] 79 10*3/uL Low 140-400 [facility] Comment on above: Performed By: #### 8 99, 72168, 86, 6399 #### [facility] [place] [address] Component Engineer: Eder Myers MD RBC (Bld) [#/Vol] 4.03 10*6/uL Low 4.20-5.80 [facility] Comment on above: Performed By: #### 8 99, 34811, 86, 6399 #### [facility] [place] [address] Component Engineer: Eder Myers MD WBC (Bld) [#/Vol] 6.2 10*3/uL Normal 3.8-10.8 [facility] Comment on above: Performed By: #### 8 99, 12145, 866, 6399 #### [facility] [place] [address] Component Engineer: Eder Myers MD FERRITINon 04-01-2024 Ferritin [Mass/Vol] 281 ng/mL Normal 24-380 [facility] Comment on above: Performed By: #### 8 99, 32204, 866, 6399 #### [facility] [place] [address] Component Engineer: Eder Myers MD T3, FREEon 04-01-2024 Free T3 [Mass/Vol] 3.0 pg/mL Normal 2.3-4.2 [facility] Comment on above: Performed By: #### 8 99, 60385, 866, 6399 #### [facility] [place] [address] Component Engineer: Eder Myers MD T4, FREEon 04-01-2024 Free T4 [Mass/Vol] 1.0 ng/dL Normal 0.8-1.8 [facility] Comment on above: Performed By: #### 8 99, 03219, 866, 6399 #### [facility] [place] [address] Component Engineer: Eder Myers MD TSHon 04-01-2024 TSH Qn 3.93 m[IU]/L Normal 0.40-4.50 [facility] Comment on above: Performed By: #### 8 99, 99103, 866, 6399 #### [facility] [place] [address] Component Engineer: Eder Myers MD Laboratory - Chemistry and C hemistry - challengeon 03-31-2024 Ferritin [Mass/Vol] 281 ng/mL Normal 24 - 380 ng/mL [facility], [facility].; [facility], [facility]. Free T3 [Mass/Vol] 3.0 pg/mL Normal 2.3 - 4.2 pg/mL [facility], [facility].; [facility], [facility]. Free T4 [Mass/Vol] 1.0 ng/dL Normal 0.8 - 1.8 ng/dL [facility], [facility].; [facility], [facility]. TSH Qn 3.93 m[IU]/L Normal 0.40 - 4.50 {mIU/L} [facility], [facility].; [facility], [facility] Laboratory - Hematology and Cell countson 03-31-2024 Basophils (Bld) [#/Vol] 0.031 10*3/uL Normal 0 - 200 {cells/uL} [facility] Petersburg[facility].; [facility] Petersburg[facility] Basophils/100 WBC (Bld) 0.5 % Normal [facility].; [facility], [facility] Eosinophils (Bld) [#/Vol] 0.118 10*3/uL Normal 15 - 500 {cells/uL} [facility] Petersburg[facility].; [facility] Petersburg[facility] Eosinophils/100 WBC (Bld) 1.9 % Normal [facility] Petersburg[facility]; [place] [employer] [facility], [facility] Erythrocyte distribution width (RBC) [Ratio] 11.8 % Normal 11.0 - 15.0 % [facility] Petersburg[facility]; [facility], [facility] Hematocrit (Bld) [Volume fraction] 43.7 % Normal 38.5 - 50.0 % [facility] Petersburg[facility].; [facility], [facility] Hemoglobin (Bld) [Mass/Vol] 14.4 g/dL Normal 13.2 - 17.1 g/dL [facility] Petersburg[facility].; [facility], [facility] Lymphocytes (Bld) [#/Vol] 0.837 10*3/uL Abnormal 850 - 3900 {cells/uL} [facility] Petersburg[facility].; [facility], [facility] Lymphocytes/100 WBC (Bld) 13.5 % Normal [facility] Petersburg[facility].; [place] [employer] [facility], [facility] MCH (RBC) [Entitic mass] 35.7 pg Abnormal 27.0 - 33.0 pg [facility] Petersburg[facility].; [place] [employer] [facility], [facility]. MCHC (RBC) [Mass/Vol] 33.0 g/dL Normal 32.0 - 36.0 g/dL [facility] Petersburg[facility].; [place] [employer] [facility], [facility]. MCV (RBC) [Entitic vol] 108.4 fL Abnormal 80.0 - 100.0 fL [facility] Petersburg[facility].; [facility], [facility]. Monocytes (Bld) [#/Vol] 0.508 10*3/uL Normal 200 - 950 {cells/uL} [facility] Petersburg[facility].; [facility], [employer] Monocytes/100 WBC (Bld) 8.2 % Normal [facility] Petersburg[facility].; [facility], [facility]. Neutrophils (Bld) [#/Vol] 4.706 10*3/uL Normal 1500 - 7800 {cells/uL} [facility], [facility].; [place] [employer] [facility], [employer]. Neutrophils/100 WBC (Bld) 75.9 % Normal [facility] Petersburg[facility].; [place] [employer] [facility], [facility]. Platelet mean volume (Bld) [Entitic vol] 10.9 fL Normal 7.5 - 12.5 fL [facility], [facility].; [place] [employer], [facility]. Platelets (Bld) [#/Vol] 79 10*3/uL Abnormal 140 - 400 [facility] Petersburg[facility].; [place] [employer] [facility], [facility]. RBC (Bld) [#/Vol] 4.03 10*6/uL Abnormal 4.20 - 5.8 0 {Million/uL} [facility] Petersburg[facility].; [place] [employer] [facility], [facility]. WBC (Bld) [#/Vol] 6.2 10*3/uL Normal 3.8 - 10.8 [facility] Petersburg[facility].; [place] [employer], [facility]. Laboratory - Chemistry and C hemistry - challengeon 08-13-2023 Calcium [Mass/Vol] 8.6 mg/dL Normal 8.6 - 10. 3 mg/dL [facility], [facility].; [place] [employer], [facility]. Chloride [Moles/Vol] 108 mmol/L Normal 98 - 11 0 mmol/L [facility] Petersburg[facility].; [place] [employer], [facility]. Cholesterol [Mass/Vol] 95 mg/dL Normal [facility], [facility].; [place] [employer], [facility]. Cholesterol in HDL [Mass/Vol] 29 mg/dL Abnormal [place] [employer] [facility].; [place] [employer], [facility]. Cholesterol in LDL [Mass/Vol] 54 mg/dL Normal [facility], [facility].; [place] [employer], [facility]. CO2 [Moles/Vol] 26 mmol/L Normal 20 - 32 mmol/L [facility], [facility].; [place] [employer], [employer]. Creatinine [Mass/Vol] 0.94 mg/dL Normal 0.70 - 1.35 mg/dL [facility] Petersburg[facility].; [facility], [facility]. GFR/1.73 sq M.predicted among non-blacks MDRD (S/P/Bld) [Vol rate/Area] 92 mL/min/{1.73_m2} Normal [facility].; [facility], [facility] Glucose [Mass/Vol] 96 mg/dL Normal 65 - 99 mg/dL [facility], [facility]. Potassium [Moles/Vol] 3.8 mmol/L Normal 3.5 - 5.3 mmol/L [facility].; [facility], [facility] Sodium [Moles/Vol] 141 mmol/L Normal 135 - 146 mmol/L [facility] Petersburg[facility].; [facility], [facility] Triglyceride [Mass/Vol] 50 mg/dL Normal [facility] Petersburg[facility].; [facility], [facility]. Urea nitrogen [Mass/Vol] 20 mg/dL Normal 7 - 25 mg/dL [facility] Petersburg[facility].; [facility]. Laboratory - Hematology and Cell countson 08-13-2023 Basophils (Bld) [#/Vol] 0.041 10*3/uL Normal 0 - 200 {cells/uL} [facility].; [facility]. Basophils/100 WBC (Bld) 0.8 % Normal [facility].; [facility], [facility]. Eosinophils (Bld) [#/Vol] 0.082 10*3/uL Normal 15 - 500 {cells/uL} [facility] Petersburg[facility].; [facility]. Eosinophils/100 WBC (Bld) 1.6 % Normal [facility] Petersburg[facility].; [facility]. Erythrocyte distribution width (RBC) [Ratio] 11.6 % Normal 11.0 - 15.0 % [facility] Petersburg[facility].; [facility], [facility]. Hematocrit (Bld) [Volume fraction] 37.5 % Abnormal 38.5 - 50.0 % [facility] Petersburg[facility].; [facility], [facility]. Hemoglobin (Bld) [Mass/Vol] 12.8 g/dL Abnormal 13.2 - 17.1 g/dL [facility] Petersburg[facility].; [facility] Petersburg[facility]. Lymphocytes (Bld) [#/Vol] 0.872 10*3/uL Normal 850 - 3900 {cells/uL} [facility], [facility].; [facility], [facility]. Lymphocytes/100 WBC (Bld) 17.1 % Normal [facility] Petersburg[facility].; [facility], [facility]. MCH (RBC) [Entitic mass] 36.4 pg Abnormal 27.0 - 33.0 pg [facility] PetersburgHexa[facility].; [facility], [facility]. MCHC (RBC) [Mass/Vol] 34.1 g/dL Normal 32.0 - 36.0 g/dL [facility], [facility].; [place] [employer] [facility], [facility]. MCV (RBC) [Entitic vol] 106.5 fL Abnormal 80.0 - 100.0 fL [facility] Petersburg[facility].; [facility], [facility]. Monocytes (Bld) [#/Vol] 0.581 10*3/uL Normal 200 - 950 {cells/uL} [facility], [facility].; [place] [employer] Monocytes/100 WBC (Bld) 11.4 % Normal [facility] Petersburg[facility].; [place] [employer], [facility]. Neutrophils (Bld) [#/Vol] 3.524 10*3/uL Normal 1500 - 7800 {cells/uL} [facility] Petersburg[facility].; [place] [employer] [facility], [facility]. Neutrophils/100 WBC (Bld) 69.1 % Normal [facility] Petersburg[facility].; [place] [employer] Platelet mean volume (Bld) [Entitic vol] 11.5 fL Normal 7.5 - 12.5 fL [facility], [facility].; [place] [employer] Platelets (Bld) [#/Vol] 74 10*3/uL Abnormal 140 - 400 [facility] Petersburg[facility].; [place] [employer] [facility], [facility] RBC (Bld) [#/Vol] 3.52 10*6/uL Abnormal 4.20 - 5.8 0 {Million/uL} [facility], [facility].; [place] [employer] WBC (Bld) [#/Vol] 5.1 10*3/uL Normal 3.8 - 10.8 [facility] Petersburg[facility].; [place] [employer], [facility]. No Panel Informationon 08-13 BUN/CREATININE RATIO SEE NOTE: Normal 6 - 22 [facility]oralHex[facility].; [place] [employer], [facility]. CHOL/HDLC RATIO 3.3 Normal [facility]; [place] [employer] COMMENT(S) SEE NOTE Normal [facility], [facility].; [place] [employer], [employer]. NON HDL CHOLESTEROL 66 Normal [facility], [facility].; [place] [employer]. PSA, TOTAL 0.15 ng/mL Normal [facility] Petersburg[facility].; [place] [employer], [employer]. No Panel Informationon 06-03 FECAL GLOBIN BY IMMUNOCHEMISTRY SEE NOTE Normal [facility], [facility].; [place] [employer], [employer]. Work Phone: Laboratory - Chemistry and C hemistry - challengeon 08-02-2022 Calcium [Mass/Vol] 9.1 mg/dL Normal 8.6 - 10. 3 mg/dL [facility], [facility].; [place] [employer], [employer]. Chloride [Moles/Vol] 106 mmol/L Normal 98 - 11 0 mmol/L [facility] Petersburg[facility].; [place] [employer], [employer]. Cholesterol [Mass/Vol] 100 mg/dL Normal [facility] Petersburg[facility].; [place] [employer], [employer]. Cholesterol in HDL [Mass/Vol] 28 mg/dL Abnormal [facility] Petersburg[facility].; [place] [employer], [employer]. Cholesterol in LDL [Mass/Vol] 55 mg/dL Normal [facility] Petersburg[facility].; [employer], [employer]. CO2 [Moles/Vol] 29 mmol/L Normal 20 - 32 mmol/L [facility].; [place] [employer], [employer]. Creatinine [Mass/Vol] 0.97 mg/dL Normal 0.70 - 1.35 mg/dL [facility].; [place] [employer], [employer]. GFR/1.73 sq M.predicted among non-blacks MDRD (S/P/Bld) [Vol rate/Area] 89 mL/min/{1.73_m2} Normal [facility], [facility].; [employer] Glucose [Mass/Vol] 86 mg/dL Normal 65 - 99 mg/dL [facility].; [facility] Potassium [Moles/Vol] 3.9 mmol/L Normal 3.5 - 5.3 mmol/L [facility]; [facility], [facility] Sodium [Moles/Vol] 141 mmol/L Normal 135 - 146 mmol/L [facility]; [facility], [facility] Triglyceride [Mass/Vol] 91 mg/dL Normal [facility]; [facility] Urea nitrogen [Mass/Vol] 16 mg/dL Normal 7 - 25 mg/dL [facility]; [facility] No Panel Informationon 08-02 BUN/CREATININE RATIO NOT APPLICABLE Normal 6 - [facility]; [facility] [place], [facility] CHOL/HDLC RATIO 3.6 Normal [facility]; [facility] [place], [facility] NON HDL CHOLESTEROL 72 Normal [facility]; [facility] PSA, TOTAL 0.13 ng/mL Normal [facility]; [facility] [place], [facility] Laboratory - Chemistry and C hemistry - challengeon 02-21-2021 Albumin [Mass/Vol] 4.5 g/dL Normal 3.6 - 5.1 g/dL [facility]; [facility] [place], [facility] Albumin/Globulin [Mass ratio] 2.0 {ratio} Normal 1.0 - 2.5 [facility]; [facility] [place], [facility] ALP [Catalytic activity/Vol] 83 U/L Normal 35 - 144 U/L [facility]; [facility] [place], [facility]. ALT [Catalytic activity/Vol] 20 U/L Normal 9 - 46 U/L [facility]; [facility] [place], [facility]. AST [Catalytic activity/Vol] 21 U/L Normal 10 - 35 U/L [facility]; [facility] [place], [facility] Bilirubin [Mass/Vol] 1.3 mg/dL Abnormal 0.2 - 1 .2 mg/dL [facility]; [facility] [place], [facility] Calcium [Mass/Vol] 8.9 mg/dL Normal 8.6 - 10. 3 mg/dL [facility]; [facility] [place], [facility]. Chloride [Moles/Vol] 107 mmol/L Normal 98 - 11 0 mmol/L [facility]; [facility] [place], [facility] Cholesterol [Mass/Vol] 109 mg/dL Normal [facility]; [facility] [place], [facility] Cholesterol in HDL [Mass/Vol] 28 mg/dL Abnormal [facility]; [facility] [place], [facility] Cholesterol in LDL [Mass/Vol] 67 mg/dL Normal [facility]; [facility] [place], [facility] CO2 [Moles/Vol] 26 mmol/L Normal 20 - 32 mmol/L [facility] [place], [facility] Creatinine [Mass/Vol] 0.94 mg/dL Normal 0.70 - 1.25 mg/dL [facility]; [facility] [place], [facility] GFR/1.73 sq M.predicted among blacks MDRD (S/P/Bld) [Vol rate/Area] 102 mL/min/{1.73_m2} Normal [facility] [place], [facility] Glucose [Mass/Vol] 92 mg/dL Normal 65 - 99 mg/dL [facility] [place], [facility] Potassium [Moles/Vol] 3.9 mmol/L Normal 3.5 - 5.3 mmol/L [facility]; [facility] [place], [facility] Protein [Mass/Vol] 6.7 g/dL Normal 6.1 - 8.1 g/dL [facility], [facility].; [facility] [place], [facility] Sodium [Moles/Vol] 139 mmol/L Normal 135 - 146 mmol/L [facility] [place], [facility].; [facility] [place], [facility] Triglyceride [Mass/Vol] 67 mg/dL Normal [facility] [place], [facility]; [facility] [place], [facility] Urea nitrogen [Mass/Vol] 18 mg/dL Normal 7 - 25 mg/dL [facility] [place], [facility].; [facility] [place], [facility] No Panel Informationon 02-21 BUN/CREATININE RATIO NOT APPLICABLE Normal 6 - 22 [facility] [place], [facility].; [facility] [place] CHOL/HDLC RATIO 3.9 Normal [facility]; [facility] eGFR NON-AFR. BELGIAN 88 Normal [facility]; [facility] GLOBULIN 2.2 Normal 1.9 - 3.7 [facility]; [facility] [place], [facility] NON HDL CHOLESTEROL 81 Normal [facility]; [place] [employer] [facility], [facility] Laboratory - Chemistry and C hemistry - challengeon 02-10-2020 Albumin [Mass/Vol] 4.3 g/dL Normal 3.6 - 5.1 g/dL [facility]; [facility] [place], [facility] Albumin/Globulin [Mass ratio] 1.9 {ratio} Normal 1.0 - 2.5 [facility]; [facility] [place], [facility] ALP [Catalytic activity/Vol] 84 U/L Normal 35 - 144 U/L [facility]; [facility] [place], [facility]. ALT [Catalytic activity/Vol] 19 U/L Normal 9 - 46 U/L [facility]; [facility] [place], [facility]. AST [Catalytic activity/Vol] 17 U/L Normal 10 - 35 U/L [facility] [place], [facility]. Bilirubin [Mass/Vol] 1.2 mg/dL Normal 0.2 - 1 .2 mg/dL [facility]; [place] [employer] [facility], [facility]. Calcium [Mass/Vol] 8.8 mg/dL Normal 8.6 - 10. 3 mg/dL [facility].; [place] [employer] [facility], [facility]. Chloride [Moles/Vol] 107 mmol/L Normal 98 - 11 0 mmol/L [facility]; [facility] [place], [facility]. Cholesterol [Mass/Vol] 91 mg/dL Normal [facility]; [facility] [place], [facility] Cholesterol in HDL [Mass/Vol] 34 mg/dL Abnormal [facility].; [facility] [place], [facility] Cholesterol in LDL [Mass/Vol] 47 mg/dL Normal [facility].; [place] [employer] [facility], [facility]. CO2 [Moles/Vol] 28 mmol/L Normal 20 - 32 mmol/L [facility]; [facility] [place], [facility] Creatinine [Mass/Vol] 1.00 mg/dL Normal 0.70 - 1.33 mg/dL [facility] [place], [facility].; [facility] [place], [facility] GFR/1.73 sq M.predicted among blacks MDRD (S/P/Bld) [Vol rate/Area] 96 mL/min/{1.73_m2} Normal [facility].; [facility] [place], [facility] Glucose [Mass/Vol] 93 mg/dL Normal 65 - 99 mg/dL [facility].; [facility] [place], [facility] Potassium [Moles/Vol] 4.0 mmol/L Normal 3.5 - 5.3 mmol/L [facility]; [facility] [place], [facility] Protein [Mass/Vol] 6.6 g/dL Normal 6.1 - 8.1 g/dL [facility]; [facility] [place], [facility] Sodium [Moles/Vol] 140 mmol/L Normal 135 - 146 mmol/L [facility].; [facility] [place], [facility] Triglyceride [Mass/Vol] 35 mg/dL Normal [facility]; [facility] [place], [facility] Urea nitrogen [Mass/Vol] 14 mg/dL Normal 7 - 25 mg/dL [facility]; [facility] [place], [facility] No Panel Informationon 02-09 BUN/CREATININE RATIO NOT APPLICABLE Normal 6 - 22 [facility]; [facility] [place], [facility] CHOL/HDLC RATIO 2.7 Normal [facility]; [facility] [place], [facility]. eGFR NON-AFR. BELGIAN 83 Normal [facility] [place], [facility]. GLOBULIN 2.3 Normal 1.9 - 3.7 [facility]; [facility] [place], [facility] NON HDL CHOLESTEROL 57 Normal [facility]; [facility] [place], [facility]. PSA, TOTAL 0.2 ng/mL Normal [facility].; [place] [employer] [facility], [facility]. Laboratory - Chemistry and C hemistry - challengeon 01-04-2018 Albumin [Mass/Vol] 4.5 g/dL Normal 3.6 - 5.1 g/dL [facility].; [facility] Albumin/Globulin [Mass ratio] 2.2 {ratio} Normal 1.0 - 2.5 [facility]; [facility] ALP [Catalytic activity/Vol] 86 U/L Normal 40 - 115 U/L [facility].; [facility] [place], [facility] ALT [Catalytic activity/Vol] 29 U/L Normal 9 - 46 U/L [facility].; [facility]. AST [Catalytic activity/Vol] 21 U/L Normal 10 - 35 U/L [facility]; [facility] Bilirubin [Mass/Vol] 0.7 mg/dL Normal 0.2 - 1 .2 mg/dL [facility]; [facility] [place], [facility] Calcium [Mass/Vol] 9.3 mg/dL Normal 8.6 - 10. 3 mg/dL [facility]; [facility] Chloride [Moles/Vol] 107 mmol/L Normal 98 - 11 0 mmol/L [facility]; [facility] Cholesterol [Mass/Vol] 128 mg/dL Normal [facility]; [facility] Cholesterol in HDL [Mass/Vol] 23 mg/dL Abnormal [facility]; [facility] [place], [facility] Cholesterol in LDL [Mass/Vol] 85 mg/dL Normal 0 - 100 mg/dL [facility]; [facility] Cholesterol non HDL [Mass/Vol] 105 mg/dL Normal [facility]; [facility] Cholesterol.total/Cho lesterol in HDL [Mass ratio] 5.6 {ratio} Abnormal [facility].; [facility] CO2 [Moles/Vol] 27 mmol/L Normal 20 - 31 mmol/L [facility]; [facility] [place], [facility] Creatinine [Mass/Vol] 0.91 mg/dL Normal 0.70 - 1.33 mg/dL [facility].; [facility] GFR/1.73 sq M.predicted among blacks MDRD (S/P/Bld) [Vol rate/Area] 109 {ML/MIN/1.73M2} Normal [facility], [facility].; [facility] [place], [facility]. GFR/1.73 sq M.predicted MDRD (S/P/Bld) [Vol rate/Area] 94 {ML/MIN/1.73M2} Normal [facility] [place], [facility].; [facility] [place], [facility] Globulin (S) [Mass/Vol] 2.1 g/dL Normal 1.9 - 3.7 g/dL [facility].; [facility] [place], [facility] Glucose [Mass/Vol] 107 mg/dL Abnormal 65 - 99 mg/dL [facility].; [facility] [place], [facility]. Potassium [Moles/Vol] 3.6 mmol/L Normal 3.5 - 5.3 mmol/L [facility]; [facility] [place], [facility] Protein [Mass/Vol] 6.6 g/dL Normal 6.1 - 8.1 g/dL [facility]; [facility] [place], [facility] Sodium [Moles/Vol] 141 mmol/L Normal 135 - 146 mmol/L [facility].; [facility] [place], [facility]. Triglyceride [Mass/Vol] 106 mg/dL Normal [facility]; [facility] [place], [facility]. Urea nitrogen [Mass/Vol] 12 mg/dL Normal 7 - 25 mg/dL [facility] [place], [facility].; [facility] [place], [facility] Urea nitrogen/Creatinine [Mass ratio] 13.4 mg/mg Normal 6 - 22 [facility]; [facility] [place], [facility]. Laboratory - Chemistry and C hemistry - challengeon 04-11-2016 Albumin [Mass/Vol] 4.8 g/dL Normal 3.6 - 5.1 g/dL [facility], [facility].; [facility] [place], [facility]. Albumin/Globulin [Mass ratio] 2.1 {ratio} Normal 1.0 - 2.5 [facility] [place], [facility]. ALP [Catalytic activity/Vol] 85 U/L Normal 40 - 115 U/L [facility] [place], [facility].; [facility] [place], [facility]. ALT [Catalytic activity/Vol] 26 U/L Normal 9 - 46 U/L [facility].; [facility]. AST [Catalytic activity/Vol] 21 U/L Normal 10 - 35 U/L [facility]; [facility] [place], [facility]. Bilirubin [Mass/Vol] 1.2 mg/dL Normal 0.2 - 1 .2 mg/dL [facility]; [facility] [place], [facility] Calcium [Mass/Vol] 9.4 mg/dL Normal 8.6 - 10. 3 mg/dL [facility]; [facility] Chloride [Moles/Vol] 102 mmol/L Normal 98 - 11 0 mmol/L [facility]; [facility] Cholesterol [Mass/Vol] 138 mg/dL Normal 125 - 200 mg/dL [facility]; [facility] [place], [facility]. Cholesterol in HDL [Mass/Vol] 28 mg/dL Abnormal [facility]; [facility] Cholesterol in LDL [Mass/Vol] 95 mg/dL Normal [facility]; [facility] [place], [facility]. Cholesterol non HDL [Mass/Vol] 110 mg/dL Normal [facility].; [facility] Cholesterol.total/Cho lesterol in HDL [Mass ratio] 4.9 {ratio} Normal [facility]; [facility] [place], [facility]. CO2 [Moles/Vol] 26 mmol/L Normal 19 - 30 mmol/L [facility]; [facility] [place], [facility] Creatinine [Mass/Vol] 1.00 mg/dL Normal 0.70 - 1.33 mg/dL [facility].; [facility] [place], [facility]. GFR/1.73 sq M.predicted among blacks MDRD (S/P/Bld) [Vol rate/Area] 98 {ML/MIN/1.73M2} Normal [facility].; [facility] [place], [facility]. GFR/1.73 sq M.predicted MDRD (S/P/Bld) [Vol rate/Area] 84 {ML/MIN/1.73M2} Normal [facility].; [facility] [place], [facility] Globulin (S) [Mass/Vol] 2.3 g/dL Normal 1.9 - 3.7 g/dL [facility]; [facility] [place], [facility] Glucose [Mass/Vol] 86 mg/dL Normal 65 - 99 mg/dL [facility]; [facility] [place], [facility] Potassium [Moles/Vol] 4.0 mmol/L Normal 3.5 - 5.3 mmol/L [facility]; [facility] Protein [Mass/Vol] 7.1 g/dL Normal 6.1 - 8.1 g/dL [facility]; [facility] Sodium [Moles/Vol] 138 mmol/L Normal 135 - 146 mmol/L [facility]; [facility] [place], [facility] Triglyceride [Mass/Vol] 74 mg/dL Normal [facility]; [facility] [place], [facility] Urea nitrogen [Mass/Vol] 14 mg/dL Normal 7 - 25 mg/dL [facility]; [facility] [place], [facility] Urea nitrogen/Creatinine [Mass ratio] 13.5 mg/mg Normal 6 - 22 [facility]; [facility] [place], [facility] Laboratory - Chemistry and C hemistry - challengeon 10-31-2013 TSH Qn 2.58 m[IU]/L Normal 0.40 - 4.50 {mIU/L} [facility]; [facility] [place], [facility] Laboratory - Chemistry and C hemistry - challengeon 04-25-2013 Albumin [Mass/Vol] 4.4 g/dL Normal 3.6 - 5.1 g/dL [facility]; [facility] [place], [facility] Albumin/Globulin [Mass ratio] 2.3 {ratio} Normal 1.0 - 2.5 [facility]; [facility] [place], [facility] ALP [Catalytic activity/Vol] 73 U/L Normal 40 - 115 U/L [facility]; [facility] [place], [facility] ALT [Catalytic activity/Vol] 22 U/L Normal 9 - 46 U/L [facility]; [facility] [place], [facility] AST [Catalytic activity/Vol] 19 U/L Normal 10 - 35 U/L [facility]; [facility] [place], [facility]. Bilirubin [Mass/Vol] 0.5 mg/dL Normal 0.2 - 1 .2 mg/dL [facility].; [facility] [place], [facility] Calcium [Mass/Vol] 9.0 mg/dL Normal 8.6 - 10. 3 mg/dL [facility].; [facility] [place], [facility] Chloride [Moles/Vol] 109 mmol/L Normal 98 - 11 0 mmol/L [facility].; [facility] [place], [facility]. CO2 [Moles/Vol] 26 mmol/L Normal 19 - 30 mmol/L [facility].; [facility] [place], [facility] Creatinine [Mass/Vol] 1.04 mg/dL Normal 0.70 - 1.33 mg/dL [facility].; [facility] [place], [facility]. GFR/1.73 sq M.predicted among blacks MDRD (S/P/Bld) [Vol rate/Area] 95 {ML/MIN/1.73M2} Normal [facility].; [facility] [place], [facility]. GFR/1.73 sq M.predicted MDRD (S/P/Bld) [Vol rate/Area] 82 {ML/MIN/1.73M2} Normal [facility] [place], [facility].; [facility] [place], [facility]. Globulin (S) [Mass/Vol] 1.9 g/dL Normal 1.9 - 3.7 g/dL [facility] [place], [facility].; [facility] [place], [facility]. Glucose [Mass/Vol] 107 mg/dL Abnormal 65 - 99 mg/dL [facility] [place], [facility]. Potassium [Moles/Vol] 3.6 mmol/L Normal 3.5 - 5.3 mmol/L [facility].; [facility] [place], [facility] Prostate specific Ag [Mass/Vol] 0.2 ng/mL Normal 0.0 - 4.0 ng/mL [facility].; [facility] [place], [facility]. Protein [Mass/Vol] 6.3 g/dL Normal 6.1 - 8.1 g/dL [facility].; [facility] [place], [facility] Sodium [Moles/Vol] 141 mmol/L Normal 135 - 146 mmol/L [facility]; [facility] Urea nitrogen [Mass/Vol] 16 mg/dL Normal 7 - 25 mg/dL [facility]; [facility] [place], [facility] Urea nitrogen/Creatinine [Mass ratio] 14.9 mg/mg Normal 6 - 22 [facility]; [facility] Laboratory - Chemistry and C hemistry - challengeon 05-03-2012 Albumin [Mass/Vol] 4.6 g/dL Normal 3.6 - 5.1 g/dL [facility]; [facility] [place], [facility] Albumin/Globulin [Mass ratio] 2.0 {ratio} Normal 1.0 - 2.1 [facility]; [facility] ALP [Catalytic activity/Vol] 81 U/L Normal 40 - 115 U/L [facility]; [facility] [place], [facility]. ALT [Catalytic activity/Vol] 28 U/L Normal 9 - 60 U/L [facility].; [facility]. AST [Catalytic activity/Vol] 21 U/L Normal 10 - 35 U/L [facility].; [facility]. Bilirubin [Mass/Vol] 0.5 mg/dL Normal 0.2 - 1 .2 mg/dL [facility]; [facility] [place], [facility]. Calcium [Mass/Vol] 9.6 mg/dL Normal 8.6 - 10. 3 mg/dL [facility].; [facility]. Chloride [Moles/Vol] 106 mmol/L Normal 98 - 11 0 mmol/L [facility].; [facility]. CO2 [Moles/Vol] 28 mmol/L Normal 21 - 33 mmol/L [facility].; [facility]. Creatinine [Mass/Vol] 1.01 mg/dL Normal 0.70 - 1.33 mg/dL [facility]; [facility]. GFR/1.73 sq M.predicted among blacks MDRD (S/P/Bld) [Vol rate/Area] 99 {ML/MIN/1.73M2} Normal [facility]; [facility] GFR/1.73 sq M.predicted MDRD (S/P/Bld) [Vol rate/Area] 86 {ML/MIN/1.73M2} Normal [facility]; [facility] [place], [facility] Globulin (S) [Mass/Vol] 2.4 g/dL Normal 2.1 - 3.7 g/dL [facility]; [facility] [place], [facility] Glucose [Mass/Vol] 83 mg/dL Normal 65 - 99 mg/dL [facility]; [facility] [place], [facility] Potassium [Moles/Vol] 4.0 mmol/L Normal 3.5 - 5.3 mmol/L [facility]; [facility] [place], [facility] Protein [Mass/Vol] 7.0 g/dL Normal 6.2 - 8.3 g/dL [facility]; [facility] [place], [facility] Sodium [Moles/Vol] 140 mmol/L Normal 135 - 146 mmol/L [facility]; [facility] [place], [facility] Urea nitrogen [Mass/Vol] 14 mg/dL Normal 7 - 25 mg/dL [facility]; [facility] [place], [facility] Urea nitrogen/Creatinine [Mass ratio] 13.5 mg/mg Normal 6 - 22 [facility]; [facility] [place], [facility] Vital Signs Date Time Vital Sign Value Performing Clinician Facility 03-23-2025 15:55-0400 Body height 172.72 cm [facility] Work Phone: [facility]; [facility] 03-23-2025 15:55-0400 Body mass index (BMI) [Ratio] 29.8 kg/m2 [facility] Work Phone: [facility] Center; [facility], [facility] 03-23-2025 15:55-0400 Body surface area Derived from formula 2.03 m2 [facility] Work Phone: [facility]; [facility] 03-23-2025 15:55-0400 Body weight 88.91 kg Amureen Edison TRACTOR DRILL OPERATOR Work Phone: [employer] 03-23-2025 15:55-0400 Diastolic blood pressure 77 mm[Hg] Maureen Edison TRACTOR DRILL OPERATOR Work Phone: [employer]. Comment on above: Patient Position: Sitting; Cuff Location : Left Arm; Cuff Size: Large 03-23-2025 15:55-0400 Heart rate 69 /min Maureen Edison TRACTOR DRILL OPERATOR Work Phone: [employer]. Comment on above: Pattern: Regular 03-23-2025 15:55-0400 Systolic blood pressure 131 mm[Hg] Maureen Edison TRACTOR DRILL OPERATOR Work Phone: [employer]. Comment on above: Patient Position: Sitting; Cuff Location : Left Arm; Cuff Size: Large 11-19-2024 14:15-0500 Body height 172.72 cm Maureen Edison TRACTOR DRILL OPERATOR Work Phone: [employer]. 11-19-2024 14:15-0500 Body mass index (BMI) [Ratio] 30.41 kg/m2 Maureen Edison TRACTOR DRILL OPERATOR Work Phone: [employer]. 11-19-2024 14:15-0500 Body surface area Derived from formula 2.04 m2 Maureen Edison TRACTOR DRILL OPERATOR Work Phone: [employer]. 11-19-2024 14:15-0500 Body weight 90.72 kg Maureen Edison TRACTOR DRILL OPERATOR Work Phone: [employer].; [employer]. 11-19-2024 14:15-0500 Diastolic blood pressure 86 mm[Hg] Maureen Edison TRACTOR DRILL OPERATOR Work Phone: [employer]. Comment on above: Patient Position: Sitting; Cuff Location : Left Arm; Cuff Size: Standard 11-19-2024 14:15-0500 Heart rate 63 /min Maureen Hogan LPN Work Phone: [facility] [place] [employer]. Comment on above: Pattern: Regular 11-19-2024 14:15-0500 Systolic blood pressure 125 mm[Hg] Maureen Hogan LPN Work Phone: [facility].; [employer]. Comment on above: Patient Position: Sitting; Cuff Location : Left Arm; Cuff Size: Standard 04-07-2024 09:30-0400 Body height 172.72 cm Breanna Mcpherson MA [facility].; [place] [employer]. 04-07-2024 09:30-0400 Body mass index (BMI) [Ratio] 28.74 kg/m2 Breanna Mcpherson MA [facility].; [place] [employer]. 04-07-2024 09:30-0400 Body surface area Derived from formula 2 m2 Breanna Mcpherson MA [facility].; [employer]. 04-07-2024 09:30-0400 Body temperature 98.6 [degF] Breanna Mcpherson MA [facility] [employer]. Comment on above: Method: Tympanic 04-07-2024 09:30-0400 Body weight 85.73 kg Breanna Mcpherson MA [facility].; [place] [employer]. 04-07-2024 09:30-0400 Diastolic blood pressure 74 mm[Hg] Breanna Mcpherson MA [facility].; [employer]. Comment on above: Patient Position: Sitting; Cuff Location : Left Arm; Cuff Size: Standard 04-07-2024 09:30-0400 Heart rate 74 /min Breanna Mcpherson MA [facility].; [employer]. Comment on above: Pattern: Regular 04-07-2024 09:30-0400 Inhaled oxygen concentration 21 % Breanna Mcpherson MA [facility].; [employer]. Comment on above: Room air 04-07-2024 09:30-0400 SaO2% (BldA) [Mass fraction] 96 % Breanna Mcpherson MA [place] [employer] [facility] [employer]. 04-07-2024 09:30-0400 Systolic blood pressure 115 mm[Hg] Breanna Mcpherson MA [place] [employer].; [employer]. Comment on above: Patient Position: Sitting; Cuff Location : Left Arm; Cuff Size: Standard 12-31-2023 13:49-0400 Body height 172.72 cm Maureen Edison TRACTOR DRILL OPERATOR Work Phone: [employer]. 12-31-2023 13:49-0400 Body mass index (BMI) [Ratio] 30.11 kg/m2 Maureen Edison TRACTOR DRILL OPERATOR Work Phone: [employer].; [employer]. 12-31-2023 13:49-0400 Body surface area Derived from formula 2.04 m2 Maureen Edison TRACTOR DRILL OPERATOR Work Phone: [employer].; [employer]. 12-31-2023 13:49-0400 Body weight 89.81 kg Maureen Edison TRACTOR DRILL OPERATOR Work Phone: [employer].; [employer]. 12-31-2023 13:49-0400 Diastolic blood pressure 84 mm[Hg] Maureen Edison TRACTOR DRILL OPERATOR Work Phone: [employer].; [employer]. Comment on above: Patient Position: Sitting; Cuff Location : Left Arm; Cuff Size: Standard 12-31-2023 13:49-0400 Heart rate 56 /min Maureen Edison TRACTOR DRILL OPERATOR Work Phone: [employer].; [employer]. Comment on above: Pattern: Regular 12-31-2023 13:49-0400 Systolic blood pressure 136 mm[Hg] Maureen Edison TRACTOR DRILL OPERATOR Work Phone: [employer].; [employer]. Comment on above: Patient Position: Sitting; Cuff Location : Left Arm; Cuff Size: Standard 08-22-2023 14:29-0500 Body height 172.72 cm Maureen Deison TRACTOR DRILL OPERATOR Work Phone: [place] [employer]; [employer]. 08-22-2023 14:29-0500 Body mass index (BMI) [Ratio] 30.11 kg/m2 Maureen Edison TRACTOR DRILL OPERATOR Work Phone: [employer]; [employer]. 08-22-2023 14:290500 Body surface area Derived from formula 2.04 m2 Maureen Edison TRACTOR DRILL OPERATOR Work Phone: [employer]; [employer]. 08-22-2023 14:29-0500 Body weight 89.81 kg Maureen Edison TRACTOR DRILL OPERATOR Work Phone: [employer]; [employer]. 08-22-2023 14:29-0500 Diastolic blood pressure 76 mm[Hg] Maureen Edison TRACTOR DRILL OPERATOR Work Phone: [employer]; [employer]. Comment on above: Patient Position: Sitting; Cuff Location : Left Arm; Cuff Size: Standard 08-22-2023 14:29-0500 Heart rate 53 /min Maureen Edison TRACTOR DRILL OPERATOR Work Phone: [employer]; [employer]. Comment on above: Pattern: Regular 08-22-2023 14:29-0500 Systolic blood pressure 126 mm[Hg] Maureen Edison TRACTOR DRILL OPERATOR Work Phone: [employer]; [employer]. Comment on above: Patient Position: Sitting; Cuff Location : Left Arm; Cuff Size: Standard 08-09-2022 14:28-0400 Body height 172.72 cm Maureen Edison TRACTOR DRILL OPERATOR Work Phone: [employer]; [employer]. 08-09-2022 14:28-0400 Body mass index (BMI) [Ratio] 29.65 kg/m2 Maureen Hogan LPN Work Phone: [employer]; [employer]. 08-09-2022 14:280400 Body surface area Derived from formula 2.02 m2 Maureen Hogan LPN Work Phone: [employer].; [employer]. 08-09-2022 14:28-040 Body weight 88.45 kg Maureen Hogan LPN Work Phone: [employer].; [employer]. 08-09-2022 14:28-040 Diastolic blood pressure 82 mm[Hg] Maureen Hogan LPN Work Phone: [employer]; [employer]. Comment on above: Patient Position: Sitting; Cuff Location : Left Arm; Cuff Size: Large 08-09-2022 14:28-0400 Heart rate 56 /min Maureen Hogan LPN Work Phone: [employer]; [employer]. Comment on above: Pattern: Regular 08-09-2022 14:28-0400 Systolic blood pressure 137 mm[Hg] Maureen Hogan LPN Work Phone: [employer]; [employer]. Comment on above: Patient Position: Sitting; Cuff Location : Left Arm; Cuff Size: Large 02-08-2022 14:56-0400 Body height 172.72 cm Maureen Hogan LPN Work Phone: [employer]; [employer]. 02-08-2022 14:56-0400 Body mass index (BMI) [Ratio] 28.28 kg/m2 Maureen Hogan LPN Work Phone: [employer].; [employer]. 02-08-2022 14:56-0400 Body surface area Derived from formula 1.98 m2 Maureen Hogan TRACTOR DRILL OPERATOR Work Phone: [employer].; [employer]. 02-08-2022 14:56-0400 Body weight 84.37 kg Maureen Edison TRACTOR DRILL OPERATOR Work Phone: [place] [employer].; [place] [employer]. 02-08-2022 14:56-0400 Diastolic blood pressure 77 mm[Hg] Maureen Edison TRACTOR DRILL OPERATOR Work Phone: [place] [employer].; [employer]. Comment on above: Patient Position: Sitting; Cuff Location : Left Arm; Cuff Size: Standard 02-08-2022 14:56-0400 Heart rate 56 /min Maureen Edison TRACTOR DRILL OPERATOR Work Phone: [employer].; [employer]. Comment on above: Pattern: Regular 02-08-2022 14:56-0400 Systolic blood pressure 129 mm[Hg] Maureen Edison TRACTOR DRILL OPERATOR Work Phone: [place] [employer].; [employer]. Comment on above: Patient Position: Sitting; Cuff Location : Left Arm; Cuff Size: Standard 08-15-2021 14:58-0400 Body height 172.72 cm Maureen Edison TRACTOR DRILL OPERATOR Work Phone: [place] [employer].; [employer]. 08-15-2021 14:58-0400 Body mass index (BMI) [Ratio] 28.13 kg/m2 Maureen Edison TRACTOR DRILL OPERATOR Work Phone: [place] [employer].; [place] [employer]. 08-15-2021 14:58-0400 Body surface area Derived from formula 1.98 m2 Maureen Edison TRACTOR DRILL OPERATOR Work Phone: [employer].; [employer]. 08-15-2021 14:58-0400 Body weight 83.92 kg Maureen Edison TRACTOR DRILL OPERATOR Work Phone: [employer].; [employer]. 08-15-2021 14:58-0400 Diastolic blood pressure 77 mm[Hg] Maureen Edison TRACTOR DRILL OPERATOR Work Phone: [facility].; [employer]. Comment on above: Patient Position: Sitting; Cuff Location : Left Arm; Cuff Size: Large 08-15-2021 14:58-0400 Heart rate 67 /min Maureen Hogan LPN Work Phone: [facility].; [employer]. Comment on above: Pattern: Regular 08-15-2021 14:58-0400 Systolic blood pressure 130 mm[Hg] Maureen Hogan LPN Work Phone: [facility] [employer].; [employer]. Comment on above: Patient Position: Sitting; Cuff Location : Left Arm; Cuff Size: Large 2021 15:05-0400 Body height 172.72 cm Clau Garcia LPN [facility], [facility].; [facility] [facility], [employer]. 2021 15:05-0400 Body mass index (BMI) [Ratio] 27.98 kg/m2 Clau Garcia LPN [facility].; [employer], [employer]. 2021 15:05-0400 Body surface area Derived from formula 1.97 m2 Clau Garcia LPN [facility], [facility].; [employer] [facility], [facility]. 2021 15:05-0400 Body weight 83.46 kg Clau Garcia LPN [facility], [facility].; [employer] [facility], [facility]. 2021 15:05-0400 Diastolic blood pressure 80 mm[Hg] Clau Garcia LPN [facility], [facility].; [employer], [employer]. Comment on above: Patient Position: Sitting; Cuff Location : Left Arm; Cuff Size: Standard 2021 15:05-0400 Heart rate 59 /min Clau Garcia LPN [facility], [facility].; [employer], [employer]. Comment on above: Pattern: Regular 2021 15:05-0400 Systolic blood pressure 131 mm[Hg] Clau Garcia LPN [facility], [facility].; [employer], [employer]. Comment on above: Patient Position: Sitting; Cuff Location : Left Arm; Cuff Size: Standard 08-17-2020 14:26-0500 Body height 172.72 cm Clau Garcia LPN [facility], Inc.; [facility], [facility]. 08-17-2020 14:26-0500 Body mass index (BMI) [Ratio] 28.59 kg/m2 Clau Garcia LPN [facility], [facility].; [place] [employer] [facility], Inc[facility] 08-17-2020 14:26-0500 Body surface area Derived from formula 1.99 m2 Clau Garcia LPN [facility], [facility].; [employer] [facility], [facility]. 08-17-2020 14:26-0500 Body weight 85.28 kg Clau Garcia LPN [facility], [facility].; [place] [employer] [facility], [facility]. 08-17-2020 14:26-0500 Diastolic blood pressure 76 mm[Hg] Clau Garcia LPN [facility], [facility].; [employer] Comment on above: Patient Position: Sitting; Cuff Location : Left Arm; Cuff Size: Standard 08-17-2020 14:26-0500 Heart rate 65 /min Clau Garcia LPN [facility], [facility].; [employer], [employer]. Comment on above: Pattern: Regular 08-17-2020 14:26-0500 Systolic blood pressure 129 mm[Hg] Clau Garcia LPN [facility], [facility].; [employer] Comment on above: Patient Position: Sitting; Cuff Location : Left Arm; Cuff Size: Standard 02-17-2020 14:52-0400 Body height 172.72 cm Clau Garcia LPN [facility], [facility].; [employer] [facility], [facility] 02-17-2020 14:52-0400 Body mass index (BMI) [Ratio] 28.43 kg/m2 Clau Garcia LPN [facility], [facility].; [place] [employer] [facility], [facility]. 02-17-2020 14:52-0400 Body surface area Derived from formula 1.99 m2 Clau Garcia LPN [facility], [facility].; [employer] [facility], [facility]. 02-17-2020 14:52-0400 Body weight 84.82 kg Clau Garcia LPN [facility], [facility].; [employer], [facility]. 02-17-2020 14:52-0400 Diastolic blood pressure 66 mm[Hg] Clau Garcia LPN [place] [employer] [facility], [facility].; [employer], [employer]. Comment on above: Patient Position: Sitting; Cuff Location : Left Arm; Cuff Size: Standard 02-17-2020 14:52-0400 Heart rate 62 /min Clau Garcia LPN [place] [employer] [facility], Inc.; [employer] Comment on above: Pattern: Regular 02-17-2020 14:52-0400 Systolic blood pressure 119 mm[Hg] Clau Garcia LPN [place] [employer] [facility], [employer].; [employer] Comment on above: Patient Position: Sitting; Cuff Location : Left Arm; Cuff Size: Standard 08-19-2019 14:20-0500 Body height 172.72 cm Clau Garcia LPN [place] [employer] [facility], [facility].; [employer] 08-19-2019 14:20-0500 Body mass index (BMI) [Ratio] 28.28 kg/m2 Clau Garcia LPN [place] [employer] [facility], [facility].; [employer] 08-19-2019 14:20-0500 Body surface area Derived from formula 1.98 m2 Clau Garcia LPN [place] [employer] [facility], [facility].; [employer] 08-19-2019 14:20-0500 Body weight 84.37 kg Clau Garcia LPN [place] [employer] [facility], [facility].; [employer] 08-19-2019 14:20-0500 Diastolic blood pressure 88 mm[Hg] Clau Garcia LPN [place] [employer] [facility], [facility].; [employer] Comment on above: Patient Position: Sitting; Cuff Location : Left Arm; Cuff Size: Standard 08-19-2019 14:20-0500 Heart rate 60 /min Clau Garcia LPN [employer] [facility], [facility].; [employer], [employer]. Comment on above: Pattern: Regular 08-19-2019 14:20-0500 Systolic blood pressure 131 mm[Hg] Clau Garcia LPN [employer] [facility], [facility].; [employer] Comment on above: Patient Position: Sitting; Cuff Location : Left Arm; Cuff Size: Standard 01-06-2019 13:00-0400 Body height 172.72 cm Elizabeth Nayak LPN [facility], [facility].; [employer] 01-06-2019 13:00-0400 Body mass index (BMI) [Ratio] 28.43 kg/m2 Elizabeth Nayak [facility], Inc.; [employer] 01-06-2019 13:00-0400 Body surface area Derived from formula 1.99 m2 Fernanda Malini [facility] [employer] [facility], [employer].; [employer] 01-06-2019 13:00-0400 Body weight 84.82 kg Elizabeth Nayak [facility] [facility], [facility].; [employer] 01-06-2019 13:00-0400 Diastolic blood pressure 76 mm[Hg] Elizabeth Nayak [facility], Inc.; [employer] Comment on above: Patient Position: Sitting; Cuff Location : Left Arm; Cuff Size: Large 01-06-2019 13:00-0400 Heart rate 62 /min Elizabeth Nyaak [facility], Inc.; [employer] Comment on above: Pattern: Regular 01-06-2019 13:00-0400 Systolic blood pressure 123 mm[Hg] Elizabeth Nayak [facility] [facility], [facility].; [employer] Comment on above: Patient Position: Sitting; Cuff Location : Left Arm; Cuff Size: Large 07-08-2018 14:14-0400 Body height 172.72 cm Elizabeth Nayak [facility], Inc.; [employer] 07-08-2018 14:14-0400 Body mass index (BMI) [Ratio] 28.28 kg/m2 Elizabeth Nayak [facility] [employer] [facility], [employer].; [employer] 07-08-2018 14:140400 Body surface area Derived from formula 1.98 m2 Fernanda Malini [facility] [employer] [facility], [employer].; [employer] 07-08-2018 14:140400 Body weight 84.37 kg Elizabeth Nayak [facility] [facility], [employer].; [employer] 07-08-2018 14:14-0400 Diastolic blood pressure 71 mm[Hg] Elizabeth Nayak TRACTOR DRILL OPERATOR [employer]. Comment on above: Patient Position: Sitting; Cuff Location : Left Arm; Cuff Size: Large 07-08-2018 14:14-0400 Heart rate 61 /min Elizabeth Nayak LPN [employer], [employer] Comment on above: Pattern: Regular 07-08-2018 14:14-0400 Systolic blood pressure 127 mm[Hg] Elizabeth Nayak LPN [employer], [employer] Comment on above: Patient Position: Sitting; Cuff Location : Left Arm; Cuff Size: Large 01-04-2018 11:58-0400 Body height 172.72 cm Mimi Pelaez RN [place] [employer] 01-04-2018 11:58-0400 Body mass index (BMI) [Ratio] 28.28 kg/m2 Mimi Pelaez RN [employer].; [employer] 01-04-2018 11:58-0400 Body surface area Derived from formula 1.98 m2 Mimi Pelaez RN [employer], [employer].; [employer]. 01-04-2018 11:58-0400 Body weight 84.37 kg Mimi Pelaez RN [employer], [employer].; [employer]. 01-04-2018 11:58-0400 Diastolic blood pressure 72 mm[Hg] Mimi Pelaez RN [employer]. Comment on above: Patient Position: Sitting; Cuff Location : Left Arm; Cuff Size: Standard 01-04-2018 11:58-0400 Heart rate 64 /min Mimi Pelaez RN [employer], [employer].; [employer]. Comment on above: Pattern: Regular 01-04-2018 11:58-0400 Systolic blood pressure 119 mm[Hg] Mimi Pelaez RN [employer]. Comment on above: Patient Position: Sitting; Cuff Location : Left Arm; Cuff Size: Standard 04-11-2016 16:18-0400 Body height 172.72 cm Latrice Ellis Minaya LPN [employer] [facility], Inc.; [employer], [employer] 04-11-2016 16:18-0400 Body mass index (BMI) [Ratio] 28.43 kg/m2 Latrice Ellis MaharajMarimar TRACTOR DRILL OPERATOR [employer] [facility], [employer].; [employer] 04-11-2016 16:18-0400 Body surface area Derived from formula 1.99 m2 Latrice Ellis MaharajMarimar TRACTOR DRILL OPERATOR [employer] [facility], [employer].; [employer], [employer]. 04-11-2016 16:18-0400 Body weight 84.82 kg Latrice Ellis Minaya LPN [employer], [employer].; [employer], [employer]. 04-11-2016 16:18-0400 Diastolic blood pressure 87 mm[Hg] Latrice Ellis Minaya LPN [employer] [facility], [facility].; [employer], [employer]. Comment on above: Patient Position: Sitting; Cuff Location : Right Arm; Cuff Size: Standard 04-11-2016 16:18-0400 Heart rate 56 /min Latrice Ellis Minaya LPN [employer] [facility], [facility].; [employer], [employer]. Comment on above: Pattern: Regular 04-11-2016 16:18-0400 Systolic blood pressure 131 mm[Hg] Latrice Ellis Minaya LPN [employer] [facility], Inc.; [employer], [employer]. Comment on above: Patient Position: Sitting; Cuff Location : Right Arm; Cuff Size: Standard 10-12-2015 13:51-0500 Body height 172.72 cm Latrice Ellis Minaya LPN [employer] [facility], [employer].; [employer], [employer]. 10-12-2015 13:51-0500 Body mass index (BMI) [Ratio] 29.35 kg/m2 Latrice Ellis Minaya TRACTOR DRILL OPERATOR [employer], [employer].; [employer], [employer]. 10-12-2015 13:51-0500 Body surface area Derived from formula 2.01 m2 Latrice Ellis Minaya LPN [employer], [employer].; [employer], [employer]. 10-12-2015 13:51-0500 Body weight 87.54 kg Latrice Ellis Minaya LPN [facility], [facility].; [employer], [employer]. 10-12-2015 13:51-0500 Diastolic blood pressure 76 mm[Hg] Latrice Ellis Minaya LPN [facility], [facility].; [employer], [employer]. Comment on above: Patient Position: Sitting; Cuff Location : Left Arm; Cuff Size: Standard 10-12-2015 13:51-0500 Heart rate 67 /min Latrice Ellis Minaya LPN [facility], [facility].; [employer] Comment on above: Pattern: Regular 10-12-2015 13:51-0500 Systolic blood pressure 122 mm[Hg] Latrice Ellis MaharajMolina TRACTOR DRILL OPERATOR [facility], [facility].; [employer], [employer]. Comment on above: Patient Position: Sitting; Cuff Location : Left Arm; Cuff Size: Standard 11-09-2014 15:46-0500 Body height 172.72 cm Latrice Minaya LPN [facility], [facility].; [employer], [employer] 11-09-2014 15:46-0500 Body mass index (BMI) [Ratio] 29.8 kg/m2 Latrice Ellis Minaya TRACTOR DRILL OPERATOR [place] [employer] [facility], [facility].; [employer], [employer] 11-09-2014 15:46-0500 Body surface area Derived from formula 2.03 m2 Latrice Minaya LPN [place] [employer] [facility], Inc.; [employer], [employer] 11-09-2014 15:46-0500 Body weight 88.91 kg Latrice Minaya LPN [place] [employer] [facility], [facility].; [employer], [employer] 11-09-2014 15:46-0500 Diastolic blood pressure 82 mm[Hg] Latrice Ellis Minaya LPN [employer] [facility], [facility].; [employer], [employer]. Comment on above: Patient Position: Sitting; Cuff Location : Right Arm; Cuff Size: Standard 11-09-2014 15:46-0500 Heart rate 59 /min Latrice Ellis Minaya TRACTOR DRILL OPERATOR [employer] [facility], [facility].; [employer], [employer]. Comment on above: Pattern: Regular 11-09-2014 15:46-0500 Systolic blood pressure 130 mm[Hg] Latrice Ellis Minaya LPN [facility], [facility].; [employer]. Comment on above: Patient Position: Sitting; Cuff Location : Right Arm; Cuff Size: Standard 05-04-2014 15:15-0400 Body height 172.72 cm Latrice Minaya LPN [facility], [facility].; [employer], [employer] 05-04-2014 15:15-0400 Body mass index (BMI) [Ratio] 29.5 kg/m2 Latrice Minaya LPN [place] [employer] [facility], [facility].; [employer], [employer] 05-04-2014 15:15-0400 Body surface area Derived from formula 2.02 m2 Latrice Minaya LPN [place] [employer] [facility], [facility].; [employer], [employer] 05-04-2014 15:15-0400 Body weight 88 kg Latrice Minaya LPN [place] [employer] [facility], [facility].; [employer], [employer]. 05-04-2014 15:15-0400 Diastolic blood pressure 71 mm[Hg] Latrice Minaya LPN [place] [employer] [facility], Inc.; [employer] [employer] Comment on above: Patient Position: Sitting; Cuff Location : Left Arm; Cuff Size: Standard 05-04-2014 15:15-0400 Heart rate 60 /min Latrice Minaya LPN [place] [employer] [facility], [facility] [employer], [employer]. Comment on above: Pattern: Regular 05-04-2014 15:15-0400 Systolic blood pressure 117 mm[Hg] Latrice Minaya TRACTOR DRILL OPERATOR [place] [employer] [facility] [employer], [employer]. Comment on above: Patient Position: Sitting; Cuff Location : Left Arm; Cuff Size: Standard 10-31-2013 15:46-0500 Body height 172.72 cm Mi Hernadez LPN [place] [employer] [facility] [employer], [employer]. 10-31-2013 15:46-0500 Body mass index (BMI) [Ratio] 29.04 kg/m2 Mi Hernadez LPN [place] [employer] [facility] [employer] 10-31-2013 15:46-0500 Body surface area Derived from formula 2 m2 Mi Hernadez TRACTOR DRILL OPERATOR [place] [employer] [facility] [employer], [employer]. 10-31-2013 15:46-0500 Body weight 86.64 kg Mi Hidalgo Satya CHA [facility], Inc.; [employer]. 10-31-2013 15:46-0500 Diastolic blood pressure 73 mm[Hg] Mi Hidalgo Satya CHA [facility], [facility]. Comment on above: Patient Position: Sitting; Cuff Location : Left Arm; Cuff Size: Standard 10-31-2013 15:46-0500 Heart rate 66 /min Mi Hidalgo Satya CHA [place] [employer] [facility] [employer]. Comment on above: Pattern: Regular 10-31-2013 15:46-0500 Systolic blood pressure 129 mm[Hg] Mi Hidalgo Satya CHA [place] [employer] [facility] [employer]. Comment on above: Patient Position: Sitting; Cuff Location : Left Arm; Cuff Size: Standard 05-02-2013 15:35-0400 Body height 172.72 cm Latrice Minaya LPN [place] [employer] [facility] [employer], [employer]. 05-02-2013 15:35-0400 Body mass index (BMI) [Ratio] 29.65 kg/m2 Latrice Minaya LPN [place] [employer] [facility] [employer], [employer]. 05-02-2013 15:35-0400 Body surface area Derived from formula 2.02 m2 Latrice Minaya LPN [place] [employer] [facility] [employer], [employer]. 05-02-2013 15:35-0400 Body weight 88.45 kg Latrice Minaya LPN [place] [employer] [facility], [facility].; [employer], [employer]. 05-02-2013 15:35-0400 Diastolic blood pressure 70 mm[Hg] Latrice Minaya LPN [place] [employer] [facility] [employer]. Comment on above: Patient Position: Sitting; Cuff Location : Left Arm; Cuff Size: Standard 05-02-2013 15:35-0400 Heart rate 61 /min Latrice Minaya LPN [place] [employer] [facility] [employer]. Comment on above: Pattern: Regular 05-02-2013 15:35-0400 Systolic blood pressure 105 mm[Hg] Latrice Ellis Minaya LPN [facility], [facility] [employer], [employer]. Comment on above: Patient Position: Sitting; Cuff Location : Left Arm; Cuff Size: Standard 11-01-2012 15:29-0500 Body height 172.72 cm Fatoumata Miles TRACTOR DRILL OPERATOR [facility], [facility] [employer] 11-01-2012 15:29-0500 Body mass index (BMI) [Ratio] 29.8 kg/m2 Fatoumata Miles TRACTOR DRILL OPERATOR [facility], [facility].; [employer], [employer]. 11-01-2012 15:29-0500 Body surface area Derived from formula 2.03 m2 Fatoumata Cabreraert TRACTOR DRILL OPERATOR [facility], [facility].; [employer], [employer]. 11-01-2012 15:29-0500 Body weight 88.91 kg Fatoumata Cabreramaurizio [facility], Inc.; [employer], [employer]. 11-01-2012 15:29-0500 Diastolic blood pressure 74 mm[Hg] Fatoumata Miles TRACTOR DRILL OPERATOR [facility], [facility].; [employer]. Comment on above: Patient Position: Sitting; Cuff Location : Left Arm; Cuff Size: Standard 11-01-2012 15:29-0500 Heart rate 65 /min Fatoumataemmanuelle Miles [facility], [facility] [employer], [employer]. Comment on above: Pattern: Regular 11-01-2012 15:29-0500 Systolic blood pressure 108 mm[Hg] Fatoumata Miles TRACTOR DRILL OPERATOR [facility], [facility] [employer], [employer]. Comment on above: Patient Position: Sitting; Cuff Location : Left Arm; Cuff Size: Standard 05-03-2012 15:42-0400 Body height 172.72 cm Latrice Minaya TRACTOR DRILL OPERATOR [facility], [facility] [employer], [employer]. 05-03-2012 15:42-0400 Body mass index (BMI) [Ratio] 29.65 kg/m2 Latrice Minaya TRACTOR DRILL OPERATOR [facility], [facility] [employer], [employer]. 05-03-2012 15:42-0400 Body surface area Derived from formula 2.02 m2 Latrice Minaya [facility], [facility] [employer], [facility]. 05-03-2012 15:42-0400 Body weight 88.45 kg Latrice Maharajmore TRACTOR DRILL OPERATOR [facility], [facility].; [employer] 05-03-2012 15:42-0400 Diastolic blood pressure 79 mm[Hg] Latrice Corral Molina TRACTOR DRILL OPERATOR [facility] [employer] Comment on above: Patient Position: Sitting; Cuff Location : Left Arm; Cuff Size: Standard 05-03-2012 15:42-0400 Heart rate 63 /min Latrice Ellis Minaya TRACTOR DRILL OPERATOR [facility] [employer] Comment on above: Pattern: Regular 05-03-2012 15:42-0400 Systolic blood pressure 108 mm[Hg] Latrice Ellis Minaya TRACTOR DRILL OPERATOR [facility], [facility] [employer] Comment on above: Patient Position: Sitting; Cuff Location : Left Arm; Cuff Size: Standard 11-08-2011 14:46-0500 Body height 172.72 cm Rianna Ihsan Jones [facility], [facility].; [employer], [employer]. 11-08-2011 14:46-0500 Body mass index (BMI) [Ratio] 29.8 kg/m2 Rianna C Robert [facility] [employer] [facility], [facility] [employer] 11-08-2011 14:46-0500 Body surface area Derived from formula 2.03 m2 Rianna C [place] [facility] [employer] [facility], [facility] [employer] 11-08-2011 14:46-0500 Body temperature 97 [degF] Rianna C [place] TRACTOR DRILL OPERATOR [employer] [facility], [facility].; [employer]. Comment on above: Method: Tympanic 11-08-2011 14:46-0500 Body weight 88.91 kg Rianna C Robert TRACTOR DRILL OPERATOR [place] [employer] [facility] [employer] 11-08-2011 14:46-0500 Diastolic blood pressure 70 mm[Hg] Rianna C [place] TRACTOR DRILL OPERATOR [place] [employer] [facility] [employer]. Comment on above: Patient Position: Sitting; Cuff Location : Right Arm; Cuff Size: Large 11-08-2011 14:46-0500 Heart rate 60 /min Rianna C Robert TRACTOR DRILL OPERATOR [employer]. Comment on above: Pattern: Regular 11-08-2011 14:46-0500 Systolic blood pressure 106 mm[Hg] Rianna C [place] TRACTOR DRILL OPERATOR [employer] Comment on above: Patient Position: Sitting; Cuff Location : Right Arm; Cuff Size: Large 10-30-2011 15:27-0500 Body height 172.72 cm Rianna C [place] TRACTOR DRILL OPERATOR [employer]. 10-30-2011 15:27-0500 Body mass index (BMI) [Ratio] 29.86 kg/m2 Rianna C [place] TRACTOR DRILL OPERATOR [employer], [employer]. 10-30-2011 15:27-0500 Body surface area Derived from formula 2.03 m2 Rianna C Robert TRACTOR DRILL OPERATOR [employer]. 10-30-2011 15:27-0500 Body weight 89.09 kg Rianna C [place] TRACTOR DRILL OPERATOR [employer], [employer].; [employer]. 10-30-2011 15:27-0500 Diastolic blood pressure 72 mm[Hg] Rianna C Robert TRACTOR DRILL OPERATOR [employer]. Comment on above: Patient Position: Sitting; Cuff Location : Left Arm; Cuff Size: Large 10-30-2011 15:27-0500 Heart rate 59 /min Rianna C Robert TRACTOR DRILL OPERATOR [employer]. Comment on above: Pattern: Regular 10-30-2011 15:27-0500 Systolic blood pressure 112 mm[Hg] Rianna C Robert TRACTOR DRILL OPERATOR [employer], [employer]. Comment on above: Patient Position: Sitting; Cuff Location : Left Arm; Cuff Size: Large 04-13-2011 15:54-0400 Body height 172.72 cm Rianna C Robert TRACTOR DRILL OPERATOR [employer]. 04-13-2011 15:54-0400 Body mass index (BMI) [Ratio] 29.65 kg/m2 Rianna C Robert TRACTOR DRILL OPERATOR [facility], [facility] [employer], [facility]. 04-13-2011 15:54-0400 Body surface area Derived from formula 2.02 m2 Rianna C [place] TRACTOR DRILL OPERATOR [facility], [facility].; [employer] 04-13-2011 15:54-0400 Body weight 88.45 kg Rianna C Robert TRACTOR DRILL OPERATOR [facility], [facility].; [employer] 04-13-2011 15:54-0400 Diastolic blood pressure 73 mm[Hg] Rianna C [place] TRACTOR DRILL OPERATOR [employer] [facility], [facility].; [employer], [employer]. Comment on above: Patient Position: Sitting; Cuff Location : Left Arm; Cuff Size: Large 04-13-2011 15:54-0400 Heart rate 63 /min Rianna C [place] TRACTOR DRILL OPERATOR [facility], [facility].; [employer] Comment on above: Pattern: Regular 04-13-2011 15:54-0400 Systolic blood pressure 103 mm[Hg] Rianna C [place] TRACTOR DRILL OPERATOR [place] [employer] [facility] [employer], [employer]. Comment on above: Patient Position: Sitting; Cuff Location : Left Arm; Cuff Size: Large 09-28-2010 15:30-0500 Body height 172.72 cm Rianna C [place] TRACTOR DRILL OPERATOR [facility] [employer] 09-28-2010 15:30-0500 Body mass index (BMI) [Ratio] 31.23 kg/m2 Rianna C [place] TRACTOR DRILL OPERATOR [employer] [facility], [facility] [employer] 09-28-2010 15:30-0500 Body surface area Derived from formula 2.07 m2 Rianna C Robert TRACTOR DRILL OPERATOR [employer] [facility], [facility] [employer], [employer]. 09-28-2010 15:30-0500 Body weight 93.17 kg Rianna C Robert TRACTOR DRILL OPERATOR [place] [employer] [facility], [facility] [employer], [employer]. 09-28-2010 15:30-0500 Diastolic blood pressure 80 mm[Hg] Rianna C Robert TRACTOR DRILL OPERATOR [employer], [employer]. Comment on above: Patient Position: Sitting; Cuff Location : Left Arm; Cuff Size: Large 09-28-2010 15:30-0500 Heart rate 63 /min Rianna Jones LPN [employer] [facility] [employer]. Comment on above: Pattern: Regular 09-28-2010 15:30-0500 Systolic blood pressure 127 mm[Hg] Rianna Jones LPN [employer], [employer], [employer]. Comment on above: Patient Position: Sitting; Cuff Location : Left Arm; Cuff Size: Large Encounters Encounter Date Encounter Type Care Provider Facility Start: 03-26-2025 End: 03-26-2025 Phone Encounter Mena Hairston MD [facility] Start: 03-23-2025 End: 03-23-2025 ambulatory MENA HAIRSTON [facility] Start: 03-23-2025 End: 03-23-2025 Office outpatient visit 15 minutes Mena Hairston MD Work Phone: [employer] Start: 12-10-2024 [facility] Start: 11-19-2024 End: 11-19-2024 Patient encounter procedure Mena Hairston MD Work Phone: [employer]. Start: 11-19-2024 End: 11-19-2024 Physical examination Mena Hairston MD Work Phone: [employer]. Start: 11-19-2024 Physical examination Maureen chan LPN Work Phone: [employer]. Start: 11-19-2024 Review Mena mckeon MD Work Phone: [employer]. Start: 11-11-2024 End: 11-12-2024 Orders Mena Hairston MD Work Phone: [employer]. Start: 11-11-[address] [facility] Start: 10-02-2024 End: 10-02-2024 Orders eMna Hairston MD Work Phone: [employer] Start: 04-07-2024 End: 04-07-2024 Office outpatient visit 15 minutes Mena Hairston MD Work Phone: [employer] Start: 03-31-2024 End: 03-31-2024 Orders Mena Hairston MD Work Phone: [employer] Start: 12-31-2023 End: 12-31-2023 Office outpatient visit 25 minutes Mena Hairston MD Work Phone: [employer] Start: 12-31-2023 Follow-up encounter Mena rm MD Work Phone: [employer] Start: 09-24-2023 End: 09-24-2023 Orders Mena Hairston MD Work Phone: [employer] Start: 09-21-2023 End: 09-21-2023 Historical Summary Mena Hairston MD Work Phone: [employer] Start: 09-10-2023 End: 09-10-2023 Patient encounter procedure [facility] Work Phone: Start: 09-10-2023 End: 09-10-2023 ambulatory Mena Hairston [facility] Work Phone: Start: 08-22-2023 End: 08-22-2023 Patient encounter procedure Mena Hairston MD Work Phone: [employer] Start: 08-22-2023 End: 08-22-2023 Physical examination Mena Hairston MD Work Phone: [employer]; [employer]. Start: 08-13-2023 End: 08-21-2023 Orders Mena Hairston MD Work Phone: [employer] Start: 06-07-2023 End: 06-07-2023 Orders Mena Hairston MD Work Phone: [employer] Start: 08-09-2022 End: 08-09-2022 Patient encounter procedure Mena Hairston MD Work Phone: [employer] Start: 08-09-2022 End: 08-09-2022 Patient encounter status Mena Hairston MD Work Phone: [employer]; [employer] Start: 08-02-2022 End: 08-02-2022 Orders Mena Hairston MD Work Phone: [employer] Start: 06-26-2022 End: 06-26-2022 Orders Mena Hairston MD Work Phone: [employer] Start: 02-08-2022 End: 02-08-2022 Patient encounter procedure Mena Hairston MD Work Phone: [employer] Start: 08-15-2021 End: 08-15-2021 Patient encounter procedure Mena Hairston MD Work Phone: [employer] Start: 2021 End: 02-23-2021 Patient encounter status Mena Hairston MD Work Phone: [employer]; [employer] Start: 2021 End: 02-23-2021 Periodic preventive med est patient 40-64yrs Mena Hairston MD Work Phone: [employer] Start: 02-21-2021 End: 02-23-2021 Orders Mena Hairston MD Work Phone: [employer] Start: 01-13-2021 End: 01-19-2021 Orders Mena Hairston MD Work Phone: [employer] Start: 08-17-2020 End: 08-17-2020 Office outpatient visit 25 minutes Mena Hairston MD Work Phone: [employer] Start: 03-02-2020 End: 03-02-2020 Historical Summary Mena Hairston MD Work Phone: [employer] Start: 02-17-2020 End: 02-19-2020 Patient encounter status Mena Hairston MD Work Phone: [employer]; [employer]. Start: 02-17-2020 End: 02-19-2020 Periodic preventive med est patient 40-64yrs Mena Hairston MD Work Phone: [employer] Start: 02-10-2020 End: 02-10-2020 Orders Mena Hairston MD Work Phone: [employer] Start: 01-19-2020 End: 01-19-2020 Orders Mena Hairston MD Work Phone: [employer] Start: 08-19-2019 End: 08-21-2019 Office outpatient visit 25 minutes Mena Hairston MD Work Phone: [employer] Start: 08-19-2019 End: 08-22-2019 Orders Mena Hairston MD Work Phone: [employer] Start: 07-03-2019 End: 07-03-2019 Telephone follow-up Mena Hairston MD Work Phone: [employer] Start: 01-06-2019 End: 01-06-2019 Office outpatient visit 25 minutes Mena Hairston MD Work Phone: [employer] Start: 07-08-2018 End: 07-08-2018 Office outpatient visit 25 minutes Mena Hairston MD Work Phone: [employer] Start: 01-04-2018 End: 01-04-2018 Office outpatient visit 25 minutes Mena Hairston MD Work Phone: [employer] Start: 04-11-2016 End: 04-14-2016 Patient encounter procedure Mena Hairston MD Work Phone: [employer] Start: 04-11-2016 End: 04-14-2016 Patient encounter status Mena Hairston MD Work Phone: [employer]; [employer]. Start: 02-14-2016 End: 02-14-2016 Orders Mena Hairston MD Work Phone: [employer] Start: 10-12-2015 End: 10-12-2015 Office outpatient visit 15 minutes Mena Hairston MD Work Phone: [employer]. Start: 11-09-2014 End: 11-09-2014 Office outpatient visit 15 minutes Mena Hairston MD Work Phone: [employer] Start: 05-04-2014 End: 05-05-2014 Patient encounter procedure Mena Hairston MD Work Phone: [employer] Start: 10-31-2013 End: 10-31-2013 Patient encounter procedure Mena Hairston MD Work Phone: [employer] Start: 05-02-2013 End: 05-02-2013 Patient encounter procedure Mena Hairston MD Work Phone: [employer] Start: 04-25-2013 End: 04-25-2013 Orders Mena Hairston MD Work Phone: [employer] Start: 04-22-2013 End: 04-22-2013 Orders Mena Hairston MD Work Phone: [employer] Start: 11-01-2012 End: 11-03-2012 Patient encounter procedure Mena Hairston MD Work Phone: [employer] Start: 05-03-2012 End: 05-03-2012 Patient encounter procedure Mena Hairston MD Work Phone: [employer] Start: 11-08-2011 End: 11-08-2011 Patient encounter procedure Mena Hairston MD Work Phone: [employer] Start: 10-30-2011 End: 10-30-2011 Patient encounter procedure Mena Hairston MD Work Phone: [employer] Start: 04-13-2011 End: 04-14-2011 Patient encounter procedure [facility]irst[facility] MD [facility] Start: 09-28-2010 End: 09-28-2010 Patient encounter procedure Mena Hairston MD Work Phone[facility] Start: 09-23-2010 End: 09-23-2010 Historical Summary Mena Hairston MD Work Phone: [employer] [facility] Start: 08-30-2010 End: 08-30-2010 Medication Mena [facility]irston MD [facility] Start: 08-30-2010 End: 08-30-2010 Historical Summary Mena Hairston MD Work Phone: [facility] Physical examination Maureen Johnston good CHA Work Phone: [employer] [facility] Monkey Butt; happin! [facility] Procedures Date Procedure Procedure Detail Performing Clinician Start: 03-23-2025 End: 03-26-2025 Radiologic exam knee complete 4/more views Mena Hairston MD Work Phone: Start: 11-19-2024 End: 11-19-2024 Alcohol consumption screening Mena Hairston MD Work Phone: Comment on above: neg Start: 11-19-2024 End: 11-19-2024 Current tobacco non-user cad cap copd pv dm Mena Hairston MD Work Phone: Start: 11-19-2024 End: 11-19-2024 Depression screening Mena Hairston MD Work Phone: Start: 11-19-2024 End: 11-19-2024 Most recent diastolic blood pressure 80-89 mm hg Mena Hairston MD Work Phone: Start: 11-19-2024 End: 11-19-2024 Most recent systolic blood pressure <130 mm hg Mena Hairston MD Work Phone: Start: 11-19-2024 End: 11-19-2024 No Known Past Surgical History Maureen Hogan LPN Work Phone: Start: 11-19-2024 End: 11-19-2024 Pos clin depres scrn f/u doc Mena Hairston MD Work Phone: Start: 11-19-2024 End: 11-19-2024 Scr dep neg, no plan reqd Mena stiles MD Work Phone: Start: 11-11-2024 End: 11-11-2024 Lab findings surveillance Maureen Mcrae PN Work Phone: Comment on above: 89 Start: 11-11-2024 End: 11-11-2024 Lipid panel Maureen Hogan LPN Work Phone: Comment on above: tc 102 hdl 29 ldl 59 trig 67 Start: 09-10-2023 End: 09-10-2023 Sleep Study Mena Welch Work Phone: Comment on above: mild CARY[place], [place] Start: 08-22-2023 End: 09-21-2023 Polysom 6/>yrs sleep 4/> addl flora attnd Mena Hairston MD Work Phone: Start: 08-22-2023 End: 08-22-2023 Body mass index documented Mena quintana MD Work Phone: Start: 08-22-2023 End: 08-22-2023 Depression screening Mena Hairston MD Work Phone: Start: 08-22-2023 End: 08-22-2023 Flu immunize order/admin Mena kan MD Work Phone: Start: 08-22-2023 End: 08-22-2023 Scr dep neg, no plan reqd Mena stiles MD Work Phone: Start: 08-15-2023 End: 08-15-2023 Sleep Study Maureen Hogan LPN Work Phone: Start: 08-13-2023 End: 08-13-2023 Lab findings surveillance Maureen SANTA Work Phone: Comment on above: 96 Start: 08-13-2023 End: 08-13-2023 Lipid panel Maureen Hogan LPN Work Phone: Comment on above: tc 95 hdl 29 ldl 54 trig 50 Start: 08-13-2023 End: 08-13-2023 Prostate specific antigen measurement Maureen Hogan LPN Work Phone: Comment on above: 0.15 Start: 06-03-2023 End: 06-03-2023 FIT DNA test Maureen Hogan LPN Work Phone: Comment on above: Negative Finding. neg, 05/2023 neg Start: 08-09-2022 End: 08-09-2022 Depression screening Mena Hairston MD Work Phone: Start: 08-09-2022 End: 08-09-2022 Flu immunize order/admin Mena kan MD Work Phone: Start: 08-09-2022 End: 08-09-2022 Most recent diastolic blood pressure 80-89 mm hg Mena Hairston MD Work Phone: Start: 08-09-2022 End: 08-09-2022 Most recent systolic blood press 130-139mm hg Mena Hairston MD Work Phone: Start: 08-09-2022 End: 08-09-2022 Scr dep neg, no plan reqd Mena stiles MD Work Phone: Start: 08-15-2021 End: 08-15-2021 Flu immunize order/admin Mena kan MD Work Phone: Start: 2021 End: 2021 Depression screening Michael Cardona MD Work Phone: Start: 2021 End: 2021 Pos clin depres scrn f/u doc Michael Cardona MD Work Phone: Start: 08-17-2020 End: 08-17-2020 Flu immunize order/admin Michael Welch Work Phone: Start: 02-17-2020 End: 02-17-2020 Depression screening Michael Cardona MD Work Phone: Start: 02-17-2020 End: 03-02-2020 Oncology colorectal screening sancho 10 dna markrs Michael Cardona MD Work Phone: Start: 02-17-2020 End: 02-17-2020 Pos clin depres scrn f/u doc Michael Cardona MD Work Phone: Start: 02-17-2020 End: 02-17-2020 PPPS, subseq visit Michael Cardona MD Work Phone: Start: 08-19-2019 End: 08-19-2019 Flu immunize order/admin Michael Welch Work Phone: Start: 01-04-2018 End: 01-04-2018 Body mass index documented Micheal Cardona MD Work Phone: Start: 04-11-2016 End: 04-11-2016 No Known Past Surgical History Elizabeth Nayak STARLA Plan of Treatment Date Care Activity Detail Author Start: 03-23-2025 Radiologic exam knee complete 4/more views Knee x-ray, Right Complete (67560) Start: 23-Mar-2025 Intent [employer]; [employer] Start: 11-19-2024 Patient encounter procedure Medical; PHYSICAL - awv [employer]. Start: 19-Nov-2024 14:10-05:00 MD Mena Hairston Appointment Request [employer] Start: 11-11-2024 Blood count complete auto&auto difrntl wbc CBC, PLATELETS & AUT DIFF (M) (45331) Start: 11-Nov-2024 Request [employer]; [employer]. Start: 11-11-2024 Comprehensive metabolic panel CMP w/ GFR* ([id number]) Start: 11-Nov-2024 Request [employer]; [employer]. Start: 11-11-2024 Lipid panel LIPID PANEL ([id number]) Start: 11-Nov-2024 Request [employer] Start: 11-11-2024 Nursing evaluation of patient and report [employer]. Start: 03-31-2024 Assay of ferritin FERRITIN ([id number]) Start: 31-Mar-2024 Request [employer] Start: 03-31-2024 Assay of free thyroxine T4 FREE ([id number]) Start: 31-Mar-2024 Request [employer] Start: 03-31-2024 Assay of thyroid stimulating hormone tsh TSH (THYROID STIMULATING HORMONE) ([id number]) Start: 31-Mar-2024 Request [employer] Start: 03-31-2024 Assay of triiodothyronine t3 free T3 FREE ([id number]) Start: 31-Mar-2024 Request [employer] Start: 03-31-2024 Blood count complete auto&auto difrntl wbc CBC, PLATELETS & AUT DIFF (F) ([id number]) Start: 31-Mar-2024 Request [employer] Start: 03-31-2024 Nursing evaluation of patient and report Medical; Nurse visit - fasting labs-- DAVEY [employer] Start: 31-Mar-2024 09:00-04:00 NURSE, FLOAT Appointment Request [employer]. Start: 03-15-2024 Assay of ferritin FERRITIN ([id number]) Start: 15-Mar-2024 [employer] Start: 03-15-2024 Assay of free thyroxine T4 FREE ([id number]) Start: 15-Mar-2024 [employer] Start: 03-15-2024 Assay of thyroid stimulating hormone tsh TSH (THYROID STIMULATING HORMONE) ([id number]) Start: 15-Mar-2024 [employer]. Start: 03-15-2024 Assay of triiodothyronine t3 free T3 FREE ([id number]) Start: 15-Mar-2024 Request [employer]; [employer]. Start: 03-15-2024 Blood count complete auto&auto difrntl wbc CBC, PLATELETS & AUT DIFF (F) ([id number]) Start: 15-Mar-2024 [employer]. Start: 08-19-2019 Provider Instructions for Treatment Dr Cardona Depression Indication: Recurrent major depressive disorder in partial remission Start: 19-Aug-2019 Instruction Type: Provider Instructions for Treatment [employer] Start: 09-28-2010 Provider Instructions for Treatment rah Patient Instruct Indication: GERD (gastroesophageal reflux disease) Start: 28-Sep-2010 Instruction Type: Provider Instructions for Treatment [employer]. Immunizations Immunization Date Immunization Notes Care Provider Fa heriberto 08-22-2023 influenza, injectabl e, quadrivalent, preservative free Mena Hairston MD Work Phone: [employer]; [employer]. Comment on above: Site: Right DeltoidV IS Given: * Influenza (Flu) Vaccine (Inactivated or Recombinant) (05/20/21) 08-09-2022 influenza, injectabl e, quadrivalent, contains preservative Mena Hairston MD Work Phone: [employer]; [employer] Comment on above: Site: Left DeltoidVI S Given: * Influenza Inactivated (05/20/21) 08-15-2021 influenza, injectabl e, quadrivalent, contains preservative Mena Hairston MD Work Phone: [employer]; [employer] Comment on above: Site: Left DeltoidVI S Given: * Influenza - Inactivated (05/29/19) 08-15-2021 Shingrix 50 MCG/0.5M L Intramuscular Suspension Reconstituted Mena Hairston MD Work Phone: [employer]; [employer] 08-17-2020 influenza, injectabl e, quadrivalent, contains preservative Mena Hairston MD Work Phone: [employer]; [employer] Comment on above: Site: Right Toño G iven: * Influenza - Inactivated (05/29/19) 08-19-2019 influenza, injectabl e, quadrivalent, contains preservative Mena Hairston MD Work Phone: [employer]; [employer] Comment on above: Site: Left ArmMARC Gi hong: * Influenza - Inactivated (05/21/15) 07-08-2018 influenza, injectabl e, quadrivalent, contains preservative Mena Hairston MD Work Phone: [employer]; [employer] Comment on above: Site: Right DeltoidV IS Given: * Influenza - Inactivated (05/21/15) 07-08-2018 Shingrix 50 MCG Intramuscular Suspension Reconstituted Mena Hairston MD Work Phone: [employer]; [employer] 04-11-2016 pneumococcal conjuga te vaccine, 13 valent Mena Hairston MD Work Phone: [employer]; [employer] Comment on above: Site: Deltoid (Left) VIS Given: * Pneumococcal Conjugate (PCV13) (08/19/15) 04-11-2016 tetanus toxoid, redu chelsie diphtheria toxoid, and acellular pertussis vaccine, adsorbed Mena Hairston MD Work Phone: [employer]; [employer] Comment on above: Site: Deltoid (Right )VIS Given: * Tdap (Tetanus, Diphtheria, Pertussis) (12/08/14) Payers Date Payer Category Payer Self-pay [id number] 2023 Unknown [id number] 1960 Unknown [id number] 1960 Unknown [id number] Unknown [id number] Unknown ANTHEM Social History Date Type Detail Facility Tobacco smoking stat [facility] Unknown if ever smoked [facility] Work Phone: Start: 1960 Sex Assigned At Male [facility] Caffeine Use Caffeine Use [employer]; [employer] Tobacco Use: Tobacco Use: ; S mokes 1 pack of cigarettes per day. Current every day smoker. [employer]; [employer] Smokes tobacco daily [employer]; [employer] Work Phone: Smokes 1 pack of cigarettes per day [employer]; [employer] Work Phone: Tobacco Use: Tobacco Use: ; F ormer smoker. [employer]; [employer] Ex-smoker [employer]; [employer] Work Phone: Evaluation note Note Date & Type Note Facility Evaluation note No assessment information availa ble [facility] Work Phone: Chief Complaint and Reason for Visit Chief Complaint Hypersomnia, unspeci fied Summary Purpose Family History Congestive Heart Failure Status:Active Comment s:Father. Coronary Artery Disease Status:Active Comments :Father. Father Status:Active Comments: d. Mother Status:Active Comments: d. Congestive Heart Failure Status:Active Comment s:Father. Coronary Artery Disease Status:Active Comments :Father. Father Status:Active Comments: d. Mother Status:Active Comments: d. Congestive Heart Failure Status:Active Comment s:Father. Coronary Artery Disease Status:Active Comments :Father. Father Status:Active Comments: d. Mother Status:Active Comments: d. Congestive Heart Failure Status:Active Comment s:Father. Coronary Artery Disease Status:Active Comments :Father. Father Status:Active Comments: d. Mother Status:Active Comments: d. Congestive Heart Failure Status:Active Comment s:Father. Coronary Artery Disease Status:Active Comments :Father. Father Status:Active Comments: d. Mother Status:Active Comments: d. Congestive Heart Failure Status:Active Comment s:Father. Coronary Artery Disease Status:Active Comments :Father. Father Status:Active Comments: d. Mother Status:Active Comments: d. Congestive Heart Failure Status:Active Comment s:Father. Coronary Artery Disease Status:Active Comments :Father. Father Status:Active Comments: d. Mother Status:Active Comments: d. Congestive Heart Failure Status:Active Comment s:Father. Coronary Artery Disease Status:Active Comments :Father. Father Status:Active Comments: d. Mother Status:Active Comments: d. Congestive Heart Failure Status:Active Comment s:Father. Coronary Artery Disease Status:Active Comments :Father. Father Status:Active Comments: d. Mother Status:Active Comments: d. Congestive Heart Failure Status:Active Comment s:Father. Coronary Artery Disease Status:Active Comments :Father. Father Status:Active Comments: d. Mother Status:Active Comments: d. Congestive Heart Failure Status:Active Comment s:Father. Coronary Artery Disease Status:Active Comments :Father. Father Status:Active Comments: d. Mother Status:Active Comments: d. Congestive Heart Failure Status:Active Comment s:Father. Coronary Artery Disease Status:Active Comments :Father. Father Status:Active Comments: d. Mother Status:Active Comments: d. Congestive Heart Failure Status:Active Comment s:Father. Coronary Artery Disease Status:Active Comments :Father. Father Status:Active Comments: d. Mother Status:Active Comments: d. Congestive Heart Failure Status:Active Comment s:Father. Coronary Artery Disease Status:Active Comments :Father. Father Status:Active Comments: d. Mother Status:Active Comments: d. Congestive Heart Failure Status:Active Comment s:Father. Coronary Artery Disease Status:Active Comments :Father. Father Status:Active Comments: d. Mother Status:Active Comments: d. Congestive Heart Failure Status:Active Comment s:Father. Coronary Artery Disease Status:Active Comments :Father. Father Status:Active Comments: d. Mother Status:Active Comments: d. Congestive Heart Failure Status:Active Comment s:Father. Coronary Artery Disease Status:Active Comments :Father. Father Status:Active Comments: d. Mother Status:Active Comments: d. Congestive Heart Failure Status:Active Comment s:Father. Coronary Artery Disease Status:Active Comments :Father. Father Status:Active Comments: d. Mother Status:Active Comments: d. Congestive Heart Failure Status:Active Comment s:Father. Coronary Artery Disease Status:Active Comments :Father. Father Status:Active Comments: d. Mother Status:Active Comments: d. Congestive Heart Failure Status:Active Comment s:Father. Coronary Artery Disease Status:Active Comments :Father. Father Status:Active Comments: d. Mother Status:Active Comments: d. Congestive Heart Failure Status:Active Comment s:Father. Coronary Artery Disease Status:Active Comments :Father. Father Status:Active Comments: d. Mother Status:Active Comments: d. Congestive Heart Failure Status:Active Comment s:Father. Coronary Artery Disease Status:Active Comments :Father. Father Status:Active Comments: d. Mother Status:Active Comments: d. Congestive Heart Failure Status:Active Comment s:Father. Coronary Artery Disease Status:Active Comments :Father. Father Status:Active Comments: d. Mother Status:Active Comments: d. Congestive Heart Failure Status:Active Comment s:Father. Coronary Artery Disease Status:Active Comments :Father. Father Status:Active Comments: d. Mother Status:Active Comments: d. Congestive Heart Failure Status:Active Comment s:Father. Coronary Artery Disease Status:Active Comments :Father. Father Status:Active Comments: d. Mother Status:Active Comments: d. Congestive Heart Failure Status:Active Comment s:Father. Coronary Artery Disease Status:Active Comments :Father. Father Status:Active Comments: d. Mother Status:Active Comments: d. Congestive Heart Failure Status:Active Comment s:Father. Coronary Artery Disease Status:Active Comments :Father. Father Status:Active Comments: d. Mother Status:Active Comments: d. Congestive Heart Failure Status:Active Comment s:Father. Coronary Artery Disease Status:Active Comments :Father. Father Status:Active Comments: d. Mother Status:Active Comments: d. Advance Directives No Advanced Directives Records FoundNo Advanced Directives Records FoundNo Advanced Directives Records FoundNo Advanced Directives Records Found Additional Source Comments Care Teams (unrecognized sec tion and content) Team Status: Inactive Member Role Status Dates Dr. Mena Hairston MD Attending Provider Active Goals (unrecognized section and content) Goals may be documented in a n alternate section (unrecognized sect ion and content) No Status Records FoundNo Status Records FoundNo Status Records FoundNo Status Records Found INFORMATION SOURCE (unrecogn ized section and content) DATE CREATED AUTHOR 09/15/2023 [facility] DATE CREATED AUTHOR AUTHOR'S ORGANIZ ATION 11/12/2024 [facility] DATE CREATED AUTHOR AUTHOR'S ORGANIZ ATION 11/14/2024 [facility] DATE CREATED AUTHOR AUTHOR'S ORGANIZ ATION 03/24/2025 [facility] FOR RECORDS PERTAINING TO PATIENTS WHO ARE OR HAVE BEEN ENROLLED IN A CHEMICAL DEPENDENCY/SUBSTANCEABUSE PROGRAM, SOME INFORMATION MAY BE OMITTED. This clinical summary was aggregated from multiple sources. Caution should be exercised in using it in the provision of clinical care. This summary normalizes information from multiple sources, and as a consequence, information in this document may materially change the coding, format and clinical context of patient data. In addition, data may be omitted in some cases. CLINICAL DECISIONS SHOULD BE BASED ON THE PRIMARY CLINICAL RECORDS. [employer] provides no warranty or guarantee of the accuracy or completeness of information in this document.
== END | disposition home or self-care (01) ==
LOC: LAB 15:52
PROVIDERS: PCP Family Medicine; Referring Provider Orthopaedic Surgery; Visit Provider Orthopaedic Surgery
DX: Z00.00 Encounter for general adult medical examination without abnormal findings (principal)

== ENCOUNTER → 2025-03-26 | Outpatient (CLI) | payer BC, SELFPAY ==
--- NOTE | 2025-03-26 15:58 | VDLE_ITS ---
Reason For Study Reason For Study: Swelling RIGHT LEFT GSV is normal. CFV is compressible, spontaneous, phasic, competent, CFV is compressible, spontaneous, phasic, competent and demonstrates normal augmentation. and demonstrates normal augmentation. FV is compressible, spontaneous, phasic, competent and demonstrates normal augmentation. POP V is compressible, spontaneous, phasic, competent and demonstrates normal augmentation. T/P Trunk is compressible. PTV is compressible. RT PerV is compressible. Procedure This is a venous duplex using B-mode, color flow and spectral Doppler. Exam performed in department. A preliminary report was called and/or faxed to Too Mora MD. VL/Venous Duplex US, Unilateral Interpretation Summary Deep veins of the right lower extremity are patent and compressible segmentally . There is no evidence of right lower extremity deep vein thrombosis. Valvular competence appears intact within the p roximal deep venous system on the right . The right great saphenous vein appears patent and compressible segmentally. The left common femoral vein is patent and compressible . Ordering Physician: Too Mora Referring Physician: MD Bernabe Garcias Performed By: Saadia Dawson RVT
== END | disposition home or self-care (01) ==
PROVIDERS: PCP Family Medicine; Referring Provider Orthopaedic Surgery; Visit Provider Orthopaedic Surgery
DX: R22.41 Localized swelling, mass and lump, right lower limb (principal)
CPT/HCPCS: 93971